=== PATIENT | male | born 1950 | race Caucasian/White ===

== ENCOUNTER 2018-03-23 20:20 | Emergency (ER) | payer OTHER, MEDICAID ==
[~2018-03-23] VITALS: Ht 182.9 cm; Wt 95.3 kg
[~2018-03-23 20:20] MED LIST: AML5T PO; ATOR10TA PO; CARB200T PO; CITA-30; DIVA500T4; DIVA500T53 PO; DONE10TA17; DOXE25CA2 PO; DRON400T PO; ERGO1CAP6 PO; FOLI1TAB51 PO; LACT10SO3 PO; MAGN400T21 PO; MEMA10TA PO; QUET200T30; RIV20T PO; ROPI1TAB PO; TAM04C PO; TOPI25TA32
[2018-03-23 21:35] VITALS: BP 144/87
[2018-03-23] MEDS ORDERED: MORPHINE SULF INJ 2 MG/ML SYRINGE 1ML IV ONE (21:45)
[2018-03-23] MEDS ORDERED: ASPirin-EC 325mg tab PO ONE (21:45)
[2018-03-23 21:49] LABS: Basophils # (auto) 0 uL; Eosinophils # (auto) 0 uL; Hemoglobin 14.3 g/dL (13.5-17.5); Lymphocytes # (auto) 0.7 uL; Lymphocytes % (auto) 27.8 % (10.0-50.0); Monocytes # (auto) 0.2 uL
[2018-03-23 21:50] LABS: Basophils % (auto) 0.3 % (0.0-2.0); Eosinophils % (auto) 0.7 % (0.0-7.0); Hematocrit 41.1 % (41.0-53.0); Mean Corpuscular Hemoglobin 35.3 pg (28.0-32.0); Mean Corpuscular Hgb Conc. 34.8 g/dL (32.0-36.0); Mean Corpuscular Volume 101.5 fL (80.0-100.0); Monocytes % (auto) 7.9 % (0.0-12.0); Neutrophils # (auto) 1.6 uL; Neutrophils % (auto) 63.3 % (37.0-80.0); Nucleated Red Blood Cells % 0.3 %; Red Blood Cells 4.05 10^6/uL (4.5-5.90); Red Cell Distribution Width 13.1 % (11.8-14.3); White Blood Cell 2.6 10^3/uL (4.4-10.8)
[2018-03-23 21:57] LABS: Platelet Count (auto) 95 10^3/uL (140-450)
[2018-03-23 22:03] LABS: INR 1.08 (0.9-1.15); Partial Thromboplastin Time 29.6 sec (23.78-33.04); Prothrombin Time 11.5 sec (9.27-12.13)
[2018-03-23] MEDS ORDERED: ONDANSETRON HCL 4 MG/2 ML VIAL IV ONE (22:15)
[2018-03-23 22:20] LABS: Alanine Aminotransferase 18 U/L (16-61); Albumin 3.5 g/dL (3.4-5.0); Anion Gap 9 (5-15); Aspartate Aminotransferase 14 U/L (15-37); BUN/Creatinine Ratio 22.4; Blood Urea Nitrogen 28 mg/dL (7-18); Calcium 7.9 mg/dL (8.5-10.1); Carbon Dioxide 20 mmol/L (21-32); Chloride 111 mmol/L (98-107); GFR African American 74 mL/min; GFR Non-African American 61 mL/min; Glucose 93 mg/dL (74-106); Magnesium 2.1 mg/dL (1.6-2.6); Potassium 4.2 mmol/L (3.5-5.1); Sodium 140 mmol/L (136-145)
[2018-03-23 22:26] LABS: Alkaline Phosphatase 90 U/L (45-117); Bilirubin, Total 0.3 mg/dL (0.2-1.0); Total Protein 6.7 g/dL (6.4-8.2)
[2018-03-23] MEDS ORDERED: IOHEXOL 350 MG/ML 100ML IJ ONE (22:33)
== END 2018-03-24 01:49 | disposition home or self-care (01) ==
LOC: EDBD 20:20 → ER 20:20
DX: R07.9 Chest pain, unspecified (principal); I50.9 Heart failure, unspecified; N18.9 Chronic kidney disease, unspecified; I25.10 Atherosclerotic heart disease of native coronary artery without angina pectoris; Z79.899 Other long term (current) drug therapy; Z90.49 Acquired absence of other specified parts of digestive tract; Z95.0 Presence of cardiac pacemaker
CPT/HCPCS: 36415; 71045; 71275; 80053; 83735; 83880; 84484; 85025; 85610; 85730; 93005; 96374; 96375; 99285; J2270; J2405; Q9967

== ENCOUNTER 2018-03-28 16:32 | Inpatient (IN) | payer OTHER, MEDICAID ==
[~2018-03-28] VITALS: Ht 185.4 cm; Wt 93.9 kg
[2018-03-28] MEDS ORDERED: SODIUM CHLORIDE 0.9% 1,000 ML IV ONE (18:11)
[2018-03-28 19:21] LABS: Mean Corpuscular Hemoglobin 34.7 pg (28.0-32.0)
[2018-03-28 19:23] LABS: Hematocrit 40.9 % (41.0-53.0); Hemoglobin 14.1 g/dL (13.5-17.5); Mean Corpuscular Hgb Conc. 34.4 g/dL (32.0-36.0); Platelet Count (auto) 92 10^3/uL (140-450); Red Blood Cells 4.05 10^6/uL (4.5-5.90)
[2018-03-28 19:34] LABS: Band Neutrophils % (manual) 0; Basophils % (manual) 0 (0.0-2.0); Blast Cells 0; Metamyelocytes % 0; Myelocytes % 0; Promyelocytes % 0; Reactive Lymphocytes 0
[2018-03-28 19:38] LABS: White Blood Cell 1.9 10^3/uL (4.4-10.8)
[2018-03-28 19:53] LABS: Sodium 142 mmol/L (136-145)
[2018-03-28 19:54] LABS: Alanine Aminotransferase 19 U/L (16-61); Alkaline Phosphatase 84 U/L (45-117); Anion Gap 8 (5-15); Aspartate Aminotransferase 10 U/L (15-37); BUN/Creatinine Ratio 20.4; Bilirubin, Total 0.4 mg/dL (0.2-1.0); Blood Urea Nitrogen 23 mg/dL (7-18); Calcium 8.1 mg/dL (8.5-10.1); Carbon Dioxide 24 mmol/L (21-32); Chloride 110 mmol/L (98-107); GFR African American 83 mL/min; GFR Non-African American 69 mL/min; Glucose 78 mg/dL (74-106); Total Protein 6.7 g/dL (6.4-8.2)
[2018-03-28 19:59] LABS: Albumin 3.5 g/dL (3.4-5.0)
[2018-03-28 20:05] LABS: Eosinophils % (manual) 2 (0-7); Lymphocytes % (manual) 55 (10.0-50.0); Monocytes % (manual) 5 (0-12)
[2018-03-28] MEDS ORDERED: fentaNYL CITRATE 100 MCG/2 ML VL IV ONE (22:00)
[2018-03-28] MEDS ORDERED: ACETAMINOPHEN 500 MG TAB PO PRN (23:00)
[2018-03-28] MEDS ORDERED: MORPHINE SULF INJ 2 MG/ML SYRINGE 1ML IV PRN (23:00)
[2018-03-28] MEDS ORDERED: ONDANSETRON HCL 4 MG/2 ML VIAL IV PRN (23:00)
[2018-03-28] MEDS ORDERED: QUEtiapine FUMARATE 100 MG TAB PO ONE (23:30)
[2018-03-29] MEDS ORDERED: NITROGLYCERIN 0.4 MG SL TAB SL PRN (01:00)
[2018-03-29] MEDS ORDERED: MORPHINE SULF INJ 2 MG/ML SYRINGE 1ML IV PRN (01:00)
[2018-03-29 01:30] VITALS: BP 143/88
[2018-03-29 01:31] LABS: Urine Amorphous Crystal MOD /hpf (None Seen); Urine Bacteria MANY /hpf (None Seen); Urine Blood Negative /uL (Negative); Urine Mucus FEW (None Seen); Urine Specific Gravity 1.023 (1.001-1.035); Urine WBC <1 /hpf (0 - 3)
[2018-03-29] MEDS: HYDROcodone-ACET 5/325MG TAB PO PRN ×3 (02:25→21:58)
[2018-03-29 05:00] VITALS: BP 117/74
[2018-03-29 05:43] LABS: Basophils # (auto) 0 uL; Eosinophils # (auto) 0.1 uL; Hemoglobin 12.8 g/dL (13.5-17.5); Lymphocytes # (auto) 0.9 uL; Monocytes # (auto) 0.1 uL
[2018-03-29 05:48] LABS: Basophils % (auto) 0.3 % (0.0-2.0); Eosinophils % (auto) 2.8 % (0.0-7.0); Hematocrit 37.5 % (41.0-53.0); Lymphocytes % (auto) 37.3 % (10.0-50.0); Mean Corpuscular Hemoglobin 34.6 pg (28.0-32.0); Mean Corpuscular Hgb Conc. 34.2 g/dL (32.0-36.0); Mean Corpuscular Volume 101.3 fL (80.0-100.0); Monocytes % (auto) 5.4 % (0.0-12.0); Neutrophils # (auto) 1.4 uL; Neutrophils % (auto) 54.2 % (37.0-80.0); Platelet Count (auto) 87 10^3/uL (140-450); Red Cell Distribution Width 12.7 % (11.8-14.3); White Blood Cell 2.5 10^3/uL (4.4-10.8)
[2018-03-29 05:59] LABS: BUN/Creatinine Ratio 20.7; Calcium 7.9 mg/dL (8.5-10.1); Potassium 3.7 mmol/L (3.5-5.1)
[2018-03-29] MEDS ORDERED: FINA5TAB4 PO (06:35)
[2018-03-29 09:00] VITALS: BP 128/84
[2018-03-29] MEDS: cefTRIAXone 1GM/10ml IVPUSH 10 ML IV SCH (10:31)
[2018-03-29] MEDS: TOPIRAMATE 25 MG TAB PO SCH ×2 (10:32→21:59)
[2018-03-29] MEDS: CITALOPRAM HYDROBR 20 MG TAB PO SCH (10:32)
[2018-03-29] MEDS: LACTULOSE 20Gm/30ML SOLN PO SCH (10:32)
[2018-03-29] MEDS: FOLIC ACID 1 MG TAB PO SCH (10:32)
[2018-03-29 13:00] VITALS: BP 123/74
[2018-03-29 17:01] VITALS: BP 129/81
[2018-03-29] MEDS ORDERED: RIVAROXABAN 20 MG TAB PO SCH (18:00)
[2018-03-29] MEDS: QUEtiapine FUMARATE 100 MG TAB PO SCH (21:56)
[2018-03-29] MEDS: DONEPEZIL HYDROCHLORIDE 5 MG TAB PO SCH (21:56)
[2018-03-29 22:00] VITALS: BP 143/86
[2018-03-29] MEDS ORDERED: ATORVASTATIN 20 MG TAB PO SCH (22:00)
[2018-03-30] MEDS: HYDROcodone-ACET 5/325MG TAB PO PRN ×2 (04:26→09:50)
[2018-03-30 05:00] VITALS: BP 123/79
[2018-03-30 09:00] VITALS: BP 153/94
[2018-03-30] MEDS: FOLIC ACID 1 MG TAB PO SCH (09:51)
[2018-03-30] MEDS: cefTRIAXone 1GM/10ml IVPUSH 10 ML IV SCH (09:51)
[2018-03-30] MEDS: LACTULOSE 20Gm/30ML SOLN PO SCH (09:51)
[2018-03-30] MEDS: TOPIRAMATE 25 MG TAB PO SCH ×2 (09:52→23:03)
[2018-03-30] MEDS: FINASTERIDE 5 MG TAB PO SCH (09:52)
[2018-03-30] MEDS: CITALOPRAM HYDROBR 20 MG TAB PO SCH (09:52)
[2018-03-30] MEDS ORDERED: LORazepam 2MG/ML-1ML VIAL IV PRN (12:00)
[2018-03-30 13:00] VITALS: BP 113/88
[2018-03-30] MEDS: carBAMazepine 200 MG TAB PO SCH ×2 (14:20→23:04)
[2018-03-30] MEDS: MEMANTINE HCL 5 MG TAB PO SCH ×2 (14:20→23:02)
[2018-03-30 15:52] LABS: Cholesterol 187 mg/dL (< 200); HDL Cholesterol 37 mg/dL (40-59); LDL Cholesterol 116 mg/dL (< 100); Triglycerides 230 mg/dL (< 150)
[2018-03-30 17:10] VITALS: BP 117/74
[2018-03-30] MEDS: RIVAROXABAN 15 MG TAB PO SCH (18:00)
[2018-03-30] MEDS: ROPINIROLE 1 MG PO SCH (22:00)
[2018-03-30 22:19] VITALS: BP 147/80
[2018-03-30] MEDS: ATORVASTATIN 20 MG TAB PO SCH (23:03)
[2018-03-30] MEDS: DONEPEZIL HYDROCHLORIDE 5 MG TAB PO SCH (23:05)
[2018-03-30] MEDS: QUEtiapine FUMARATE 100 MG TAB PO SCH (23:05)
[2018-03-31 04:48] VITALS: BP 140/88
[2018-03-31] MEDS: HYDROcodone-ACET 5/325MG TAB PO PRN ×2 (06:13→23:22)
[2018-03-31 08:58] VITALS: BP 128/78
[2018-03-31] MEDS: cefTRIAXone 1GM/10ml IVPUSH 10 ML IV SCH (09:36)
[2018-03-31] MEDS: FINASTERIDE 5 MG TAB PO SCH (09:36)
[2018-03-31] MEDS: FOLIC ACID 1 MG TAB PO SCH (09:37)
[2018-03-31] MEDS: MEMANTINE HCL 5 MG TAB PO SCH ×2 (09:37→22:15)
[2018-03-31] MEDS: TOPIRAMATE 25 MG TAB PO SCH ×2 (09:37→22:15)
[2018-03-31] MEDS: carBAMazepine 200 MG TAB PO SCH ×2 (09:37→22:14)
[2018-03-31] MEDS: LACTULOSE 20Gm/30ML SOLN PO SCH (09:37)
[2018-03-31] MEDS: CITALOPRAM HYDROBR 20 MG TAB PO SCH (09:37)
[2018-03-31] MEDS: ROPINIROLE 1 MG PO SCH ×3 (09:38→22:00)
[2018-03-31 11:29] LABS: Folate (Folic Acid) > 24.00 ng/mL (5.38-24)
[2018-03-31 13:00] VITALS: BP 133/81
[2018-03-31 16:57] VITALS: BP 123/84
[2018-03-31] MEDS: RIVAROXABAN 15 MG TAB PO SCH (18:23)
[2018-03-31 20:10] VITALS: BP 133/74
[2018-03-31 22:00] VITALS: BP 133/74
[2018-03-31] MEDS: ATORVASTATIN 20 MG TAB PO SCH (22:12)
[2018-03-31] MEDS: DONEPEZIL HYDROCHLORIDE 5 MG TAB PO SCH (22:17)
[2018-03-31] MEDS: QUEtiapine FUMARATE 100 MG TAB PO SCH (22:17)
[2018-04-01 05:00] VITALS: BP 117/93
[2018-04-01 08:18] VITALS: BP 132/92
[2018-04-01] MEDS: cefTRIAXone 1GM/10ml IVPUSH 10 ML IV SCH (08:32)
[2018-04-01] MEDS: LACTULOSE 20Gm/30ML SOLN PO SCH (08:33)
[2018-04-01] MEDS: FINASTERIDE 5 MG TAB PO SCH (08:33)
[2018-04-01] MEDS: FOLIC ACID 1 MG TAB PO SCH (08:33)
[2018-04-01] MEDS: carBAMazepine 200 MG TAB PO SCH ×2 (08:33→21:36)
[2018-04-01] MEDS: MEMANTINE HCL 5 MG TAB PO SCH ×2 (08:33→21:36)
[2018-04-01] MEDS: CITALOPRAM HYDROBR 20 MG TAB PO SCH (08:33)
[2018-04-01] MEDS: TOPIRAMATE 25 MG TAB PO SCH ×2 (08:34→21:40)
[2018-04-01] MEDS: ROPINIROLE 1 MG PO SCH (10:00)
[2018-04-01 12:23] VITALS: BP 142/86
[2018-04-01 16:54] VITALS: BP 136/84
[2018-04-01] MEDS: RIVAROXABAN 15 MG TAB PO SCH (18:07)
[2018-04-01] MEDS: QUEtiapine FUMARATE 100 MG TAB PO SCH (21:36)
[2018-04-01] MEDS: DONEPEZIL HYDROCHLORIDE 5 MG TAB PO SCH (21:36)
[2018-04-01] MEDS: ATORVASTATIN 20 MG TAB PO SCH (21:36)
[2018-04-01 22:00] VITALS: BP 120/79
[2018-04-02 05:00] VITALS: BP 129/87
[2018-04-02 08:00] VITALS: BP 156/97
[2018-04-02 08:24] VITALS: BP 156/97
[2018-04-02] MEDS: cefTRIAXone 1GM/10ml IVPUSH 10 ML IV SCH (09:31)
[2018-04-02] MEDS: LACTULOSE 20Gm/30ML SOLN PO SCH (09:31)
[2018-04-02] MEDS: FOLIC ACID 1 MG TAB PO SCH (09:31)
[2018-04-02] MEDS: FINASTERIDE 5 MG TAB PO SCH (09:32)
[2018-04-02] MEDS: CITALOPRAM HYDROBR 20 MG TAB PO SCH (09:32)
[2018-04-02] MEDS: MEMANTINE HCL 5 MG TAB PO SCH (09:32)
[2018-04-02] MEDS: carBAMazepine 200 MG TAB PO SCH (09:33)
[2018-04-02 14:01] VITALS: BP 156/97
[2018-04-02 16:00] VITALS: BP 119/77
== END 2018-04-02 16:30 | DRG 552 ==
LOC: EDBD 16:32 → ER 16:35 → OVERFLOW 16:36 → CENTRAL 03-29 01:30
PROVIDERS: ADMIT Nurse Practitioner Family; ATTEND Family Medicine
DX: M48.061 Spinal stenosis, lumbar region without neurogenic claudication (principal); N39.0 Urinary tract infection, site not specified; G40.209 Localization-related (focal) (partial) symptomatic epilepsy and epileptic syndromes with complex partial seizures, not intractable, without status epilepticus; D50.9 Iron deficiency anemia, unspecified; D69.6 Thrombocytopenia, unspecified; D70.9 Neutropenia, unspecified; E78.00 Pure hypercholesterolemia, unspecified; E78.5 Hyperlipidemia, unspecified; F03.90 Unspecified dementia, unspecified severity, without behavioral disturbance, psychotic disturbance, mood disturbance, and anxiety; F20.9 Schizophrenia, unspecified; G20 Parkinson's disease; H91.90 Unspecified hearing loss, unspecified ear; I11.0 Hypertensive heart disease with heart failure; I50.9 Heart failure, unspecified; K74.60 Unspecified cirrhosis of liver; K80.20 Calculus of gallbladder without cholecystitis without obstruction; M47.896 Other spondylosis, lumbar region; M77.9 Enthesopathy, unspecified; N20.0 Calculus of kidney; N40.0 Benign prostatic hyperplasia without lower urinary tract symptoms; I49.5 Sick sinus syndrome; Z98.1 Arthrodesis status; Z95.0 Presence of cardiac pacemaker; I25.2 Old myocardial infarction; Z79.01 Long term (current) use of anticoagulants; Z79.899 Other long term (current) drug therapy; Z86.711 Personal history of pulmonary embolism; Z86.718 Personal history of other venous thrombosis and embolism; Z86.73 Personal history of transient ischemic attack (TIA), and cerebral infarction without residual deficits; Z80.42 Family history of malignant neoplasm of prostate
CPT/HCPCS: 36415; 70450; 72131; 74176; 76700; 80048; 80053; 80061; 81001; 82607; 82746; 83880; 84443; 84484; 85007; 85025; 85027; 87081; 87086; 93005; 93306; 93886; 93926; 93971; 95819; 96361; 96374; 97110; 97116; 97163; J0696

== ENCOUNTER 2018-06-16 09:15 | Emergency (ER) | payer OTHER, MEDICAID ==
[~2018-06-16] VITALS: Ht 195.6 cm; Wt 95.3 kg
[~2018-06-16 09:15] MED LIST changes: -AML5T PO; -DIVA500T53 PO; -DOXE25CA2 PO; -DRON400T PO; +FINA5TAB4 PO; -FOLI1TAB51 PO; -LACT10SO3 PO; -TAM04C PO
[2018-06-16] MEDS ORDERED: SODIUM CHLORIDE 0.9% 1,000 ML IV ONE (10:05)
[2018-06-16 10:12] LABS: Basophils # (auto) 0 uL; Basophils % (auto) 0.3 % (0.0-2.0); Eosinophils # (auto) 0 uL; Eosinophils % (auto) 0.5 % (0.0-7.0); Hematocrit 42.5 % (41.0-53.0); Hemoglobin 14.5 g/dL (13.5-17.5); Lymphocytes # (auto) 1.1 uL; Lymphocytes % (auto) 38.6 % (10.0-50.0); Mean Corpuscular Hemoglobin 35.4 pg (28.0-32.0); Mean Corpuscular Hgb Conc. 34.1 g/dL (32.0-36.0); Mean Corpuscular Volume 103.7 fL (80.0-100.0); Monocytes # (auto) 0.3 uL; Monocytes % (auto) 9.4 % (0.0-12.0); Neutrophils # (auto) 1.4 uL; Neutrophils % (auto) 51.2 % (37.0-80.0); Nucleated Red Blood Cells % 0.1 %; Platelet Count (auto) 75 10^3/uL (140-450); Red Blood Cells 4.09 10^6/uL (4.5-5.90); White Blood Cell 2.8 10^3/uL (4.4-10.8)
[2018-06-16] MEDS ORDERED: QUEtiapine FUMARATE 25 MG TAB PO ONE (10:15)
[2018-06-16 10:22] LABS: Albumin 3.6 g/dL (3.4-5.0); Anion Gap 7 (5-15); Blood Urea Nitrogen 30 mg/dL (7-18); Calcium 8.6 mg/dL (8.5-10.1); Carbon Dioxide 24 mmol/L (21-32); Chloride 110 mmol/L (98-107); Glucose 80 mg/dL (74-106); Magnesium 2.2 mg/dL (1.6-2.6); Potassium 3.9 mmol/L (3.5-5.1); Sodium 141 mmol/L (136-145)
[2018-06-16 10:28] LABS: Alanine Aminotransferase 28 U/L (16-61); Alkaline Phosphatase 78 U/L (45-117); Aspartate Aminotransferase 20 U/L (15-37); BUN/Creatinine Ratio 24.6; Bilirubin, Total 0.5 mg/dL (0.2-1.0); GFR African American 76 mL/min; GFR Non-African American 63 mL/min; Total Protein 6.8 g/dL (6.4-8.2)
[2018-06-16 11:18] VITALS: BP 127/76
[2018-06-16 11:56] LABS: Urine Bacteria NONE SEEN /hpf (None Seen); Urine Blood Negative /uL (Negative); Urine Specific Gravity 1.021 (1.001-1.035); Urine WBC 1 /hpf (0 - 3)
== END 2018-06-16 13:19 | disposition home or self-care (01) ==
LOC: ER 09:15 → EDBD 09:15 → ER 13:19
DX: F41.9 Anxiety disorder, unspecified (principal); Z90.89 Acquired absence of other organs; Z95.0 Presence of cardiac pacemaker; Z79.899 Other long term (current) drug therapy
CPT/HCPCS: 36415; 71046; 80053; 81001; 83735; 83880; 84484; 85025; 93005; 93970; 94761; 99285; J7030; 96360

== ENCOUNTER 2019-03-20 09:45 | Emergency (ER) | payer MEDICARE, MEDICAID ==
[~2019-03-20] VITALS: Ht 195.6 cm; Wt 95.3 kg
[~2019-03-20 09:45] MED LIST changes: +ACET325T82 PO; -ATOR10TA PO; +ATOR10TA52 PO; +BACL20TA PO; -CARB200T PO; +CARB200T4 PO; +CHOL20007 PO; -CITA-30; +CITA10TA59 PO; +DICL1GEL26 TOP; -DIVA500T4; +DIVA500T53 PO; -DONE10TA17; +DONE10TA40 PO; -ERGO1CAP6 PO; +GABA300C10 PO; +HYDR-4833 PO; +IBUP800T24 PO; +LORA0.5T12 PO; +LORA1TAB12 PO; -MAGN400T21 PO; +MELO1TAB73 PO; +MEM5T PO; -MEMA10TA PO; +MORP-109 PO; -QUET200T30; -RIV20T PO; +RIVA20TA PO; -TOPI25TA32; +TOPI50TA32 PO
[2019-03-20 10:00] VITALS: BP 158/78
[2019-03-20 10:29] LABS: Alcohol, Urine < 3.0 mg/dL (0-5); Amphetamine Screen, Urine NEGATIVE (NEGATIVE); Barbiturate Scree,Urine NEGATIVE (NEGATIVE); Benzodiazephine Screen, Urine NEGATIVE (NEGATIVE); Cannabinoid Screen, Urine NEGATIVE (NEGATIVE); Cocaine Screen, Urine NEGATIVE (NEGATIVE); Opiate Scree,Urine NEGATIVE (NEGATIVE); Phencyclidine Screen, Urine NEGATIVE (NEGATIVE)
[2019-03-20 10:39] LABS: Basophils # (auto) 0 uL; Basophils % (auto) 0.8 % (0.0-2.0); Eosinophils # (auto) 0.2 uL; Eosinophils % (auto) 4.3 % (0.0-7.0); Hematocrit 39.5 % (41.0-53.0); Hemoglobin 13.1 g/dL (13.5-17.5); Lymphocytes # (auto) 1.7 uL; Lymphocytes % (auto) 35.5 % (10.0-50.0); Mean Corpuscular Hemoglobin 31.6 pg (28.0-32.0); Mean Corpuscular Hgb Conc. 33.2 g/dL (32.0-36.0); Mean Corpuscular Volume 95.3 fL (80.0-100.0); Monocytes # (auto) 0.5 uL; Monocytes % (auto) 11.3 % (0.0-12.0); Neutrophils # (auto) 2.3 uL; Neutrophils % (auto) 48.1 % (37.0-80.0); Nucleated Red Blood Cells % 0.2 %; Platelet Count (auto) 77 10^3/uL (140-450); Red Blood Cells 4.15 10^6/uL (4.5-5.90); Red Cell Distribution Width 14.3 % (11.8-14.3); White Blood Cell 4.7 10^3/uL (4.4-10.8)
[2019-03-20 10:51] LABS: Albumin 3.6 g/dL (3.4-5.0); BUN/Creatinine Ratio 13.9; Calcium 8.7 mg/dL (8.5-10.1); Potassium 4.6 mmol/L (3.5-5.1)
[2019-03-20 10:53] LABS: Bilirubin, Total 0.2 mg/dL (0.2-1.0); Total Protein 6.6 g/dL (6.4-8.2)
[2019-03-20 11:02] LABS: Carbamazepine (Tegretol) 7.8 ug/mL (4-12)
== END 2019-03-20 13:31 | disposition home or self-care (01) ==
LOC: EDBD 09:45 → ER 09:49
DX: R56.9 Unspecified convulsions (principal); N18.3 Chronic kidney disease, stage 3 (moderate); I13.0 Hypertensive heart and chronic kidney disease with heart failure and stage 1 through stage 4 chronic kidney disease, or unspecified chronic kidney disease; I50.9 Heart failure, unspecified; I48.91 Unspecified atrial fibrillation; Z95.0 Presence of cardiac pacemaker; Z90.49 Acquired absence of other specified parts of digestive tract; Z79.1 Long term (current) use of non-steroidal anti-inflammatories (NSAID); Z79.899 Other long term (current) drug therapy
CPT/HCPCS: 36415; 80053; 80156; 80164; 80307; 85025; 93005; 94761

== ENCOUNTER 2024-10-10 10:29 | Inpatient (IN) | payer MEDICARE, MEDICAID ==
[~2024-10-10] VITALS: Ht 182.9 cm; Wt 121.3 kg
[~2024-10-10 10:29] MED LIST changes: -ACET325T82 PO; -BACL20TA PO; -CARB200T4 PO; -CHOL20007 PO; -CITA10TA59 PO; +CITA10TA8 PO; -DICL1GEL26 TOP; +DIVA-91 PO; -DIVA500T53 PO; -DONE10TA40 PO; +DONE10TA9 PO; +FURO40TA4 PO; -GABA300C10 PO; -HYDR-4833 PO; -IBUP800T24 PO; -LORA0.5T12 PO; -LORA1TAB12 PO; -MELO1TAB73 PO; -MORP-109 PO; +POTA-36 PO; +QUET200T4 PO
--- NOTE | 2024-10-10 10:56 | ED.PDOC ---
HPI Comments HPI: 74-year-old male brought in by EMS presents with a chief complaint of chest pain x onset 30 minutes ago. Patient is baseline A&Ox2 and is poor historian. Patient is coming from a board & care facility and is bed-bound. Patient points to his left chest under his breast when asked where is the pain. Patient endorsed to EMS that his pain was a 9/10 and is tender to palpation. Patients history and medication list was obtained from prior [facility] medical records. Past Medical History: CHF, COPD, A-FIB, ARTHRITIS, DEMENTIA, DEPRESSION, HLD, HTN, [place], SEIZURES Past Surgical History: PACEMAKER, APPENDECTOMY Social History: OCCASIONAL ALCOHOL USE Medications: LASIX, PLAVIX, ELIQUIS, SYMBICORT, GABAPENTIN, CITALOPRAM, TRAMADOL, TEMAZEPAM Allergies: NKDA HPI: Poor Historian. REVIEW OF SYSTEMS: CONSTITUTIONAL: Denies acute: fever, diaphoresis, chills, generalized weakness. HEAD: Denies acute: headache, photophobia Eyes: Denies acute: Double vision, vision loss, eye pain, eye discharge. EARS: Denies acute: tinnitus, hearing loss, ear discharge, ear pain, THROAT: Denies acute: sore throat, swelling, difficulty swallowing , pain with swallowing, change in voice. NECK: Denies acute: neck pain, neck swelling, stiff neck. HEART: Denies acute : palpitations, LUNGS: Denies acute: SOB, wheezing, cough, hemoptysis ABDOMEN: Denies acute: abdominal pain, Nausea, Vomiting, diarrhea, melena , hematemesis, hematochezia SKIN: Denies acute: rash, redness, lesions, itchiness. EXTREMITIES: Denies acute: calf pain, numbness, tingling, weakness, denies pain in extremity. Denies acute: Low back pain. Neuro: Denies acute: focal neurological deficit, motor or sensory focal neurological deficit, tremors, seizure like activity, confusion, dizziness, change in mental status, loss of bowel or bladder function, cauda equina like symptoms. : Denies acute: dysuria, hematuria, flank pain, increase in urinary frequency. PSYCH: Denies acute: hallucination, suicidal ideation, homicidal ideation. PHYSICAL EXAM: General: no acute distress, awake and alert. Head: normocephalic, atraumatic. Neck: supple, trachea is midline, no swelling. Throat: Normal phonation. Eyes:, no erythema, no purulent discharge, no proptosis, no icterus. Heart: regular rate, regular rhythm, no significant murmur appreciated. Lungs: no apparent respiratory distress, Able to speak in full sentences. No wheezing, no rhonchi, no crackles. No stridors Clear to auscultation bilaterally. Abdomen: Left upper quadrant tender to palpation, non distended, soft, no guarding, no rebound, + bowel sounds. Neuro: Awake, Alert, oriented to name, self, situation, follows commands, at baseline dementia. GCS=15. Speech is normal. Skin: no petechia, no purpura, no cyanosis, non-pale, not jaundice. Lower extremities: --1/4 bilateral - Pitting edema no deformity, no focal swelling, no calf TTP. Makes eye contact. moves all four extremities. Face: no apparent facial droop. ED COURSE: Chief Complaint: Chest Pain Time Seen by MD: 10:36 Primary Care Provider: CHER Reviewed Notes: Nurses Notes, Medications, Allergies Allergies: Coded Allergies: NO KNOWN ALLERGIES (Unverified , 03/07/11) Home Meds Reported Medications Donepezil Hydrochloride (Aricept) 10 Mg Tab, 10 MG PO QHSP, TAB 04/26/19 Quetiapine Fumerate (Seroquel Xr) 200 Mg Tab, 200 MG PO QHSP for 30 Days, MG 04/26/19 Citalopram Hydrobromide (Celexa) 10 Mg Tab, 40 MG PO DAILY, TAB 04/26/19 Furosemide (Furosemide) 40 Mg Tab, 40 MG PO DAILY for 30 Days 04/26/19 Potassium Chloride (POTASSIUM CHLORIDE CR) 10 Meq Tb, 20 MEQ PO DAILY, TAB 04/26/19 Rivaroxaban (XARELTO) 20 Mg Tab, 1 TAB PO QPM, #30 TAB 5 Refills 01/26/19 Topiramate (Topamax) 50 Mg Tab, 50 MG PO DAILY, TAB 01/26/19 Memantine Hcl (NAMENDA TABLET) 5 Mg Tb, 10 MG PO HS 6/24/19 Ropinirole Hydrochloride (Requip) 1 Mg Tab, 1 MG PO TID, TAB 01/26/19 Atorvastatin Calcium (ATORVASTATIN CALCIUM) 10 Mg Tab, 10 MG PO HS, TAB 01/26/19 Finasteride (Finasteride) 5 Mg Tab, 1 TAB PO DAILY, #90 TAB 3 Refills 01/26/19 Divalproex Sodium (Depakote) 500 Mg Tab, 1500 MG PO HS, TAB 01/26/19 Information Source: Patient, Emergency Med Personnel Mode of Arrival: EMS Severity: Moderate Past Medical History PAST MEDICAL HISTORY: AFIB, Arthritis, CHF, COPD, Dementia, Depression, High Lipids, HTN, [place], Seizures Surgical History: Appendectomy, Pacemaker Family History Family History: No family hx of Cancer Social History Smoker: Non-Smoker Alcohol: Occasionally Drugs: Denies Drug Use Lives In: Assisted Care Was a procedure done? Was a procedure done?: No CP Differential Dx Differential Diagnosis: N/A Differential Diagnosis: Other (Ddx include but not limitied to gastritis, musculoskeletal pain, radiculopathy, atypical chest pain, dissection, aneurysm, ACS, unstable angina, hiatal hernia, GERD, anxiety, costochondritis, PE, pneumothroax, neoplasm, cardiac ischemia, drug abuse, anemia.) X-Ray, Labs, Meds, VS Vital Signs Date Time Temp Pulse Resp B/P (MAP) Pulse Ox O2 Delivery O2 Flow Rate FiO2 10/10/24 16:00 60 10/10/24 14:00 60 17 96 Room Air* 0 21 10/10/24 14:00 60 17 131/84 (100) 96 10/10/24 13:00 60 18 124/81 (95) 96 10/10/24 12:10 60 10/10/24 11:55 60 18 128/72 (90) 94 10/10/24 11:29 60 10/10/24 11:06 97.9 70 18 137/101 (113) 94 10/10/24 10:34 60 Lab Test 10/10/24 14:39 10/10/24 11:38 10/10/24 10:46 Range/Units Troponin I High Sensitivity 15 15 15 </=54 ng/L Lactic Acid Level 1.2 0.4-2.0 mmol/L White Blood Count 4.4 4.4-10.8 10^3/uL Red Blood Count 4.26 L 4.5-5.90 10^6/uL Hemoglobin 14.6 13.5-17.5 g/dL Hematocrit 42.5 41.0-53.0 % Mean Corpuscular Volume 99.8 80.0-100.0 fL Mean Corpuscular Hemoglobin 34.4 H 28.0-32.0 pg Mean Corpuscular Hemoglobin Concent 34.4 32.0-36.0 g/dL Red Cell Distribution Width 13.1 11.8-14.3 % Platelet Count 94 L 140-450 10^3/uL Mean Platelet Volume 7.4 6.9-10.8 fL Neutrophils (%) (Auto) 55.2 37.0-80.0 % Lymphocytes (%) (Auto) 33.7 10.0-50.0 % Monocytes (%) (Auto) 8.4 0.0-12.0 % Eosinophils (%) (Auto) 2.3 0.0-7.0 % Basophils (%) (Auto) 0.4 0.0-2.0 % Neutrophils # (Auto) 2.4 1.6-8.6 10 ^3/uL Lymphocytes # (Auto) 1.5 0.4-5.4 10 ^3/uL Monocytes # (Auto) 0.4 0-1.3 10 ^3/uL Eosinophils # (Auto) 0.1 0-0.8 10 ^3/uL Basophils # (Auto) 0 0-0.2 10 ^3/uL Nucleated Red Blood Cells 0.2 % Sodium Level 140 136-145 mmol/L Potassium Level 3.7 3.5-5.1 mmol/L Chloride Level 105 98-107 mmol/L Carbon Dioxide Level 28 20-31 mmol/L Anion Gap 7 5-15 Blood Urea Nitrogen 34 H 9-23 mg/dL Creatinine 1.82 H 0.700-1.30 mg/dL Glomerular Filtration Rate Calc 39 >90 mL/min BUN/Creatinine Ratio 18.7 10.0-20.0 Serum Glucose 89 74-106 mg/dL Calcium Level 9.5 8.7-10.4 mg/dL Total Bilirubin 0.5 0.2-1.0 mg/dL Aspartate Amino Transferase (AST) 33 13-40 U/L Alanine Aminotransferase (ALT) 11 7-40 U/L Alkaline Phosphatase 74 46-116 U/L B-Type Natriuretic Peptide 16.38 0-100 pg/mL Total Protein 6.8 5.7-8.2 g/dL Albumin 4.2 3.2-4.8 g/dL Lipase 33 12-53 U/L Current Medications Medications (Trade) Dose Ordered Sig/Yvonne Route Start Time Stop Time Status Last Admin Ceftriaxone Sodium 50 ml @ 100 mls/hr ONCE ONCE IV 10/10/24 12:00 10/10/24 12:29 DC 10/10/24 12:40 Time of 1ST Reevaluation: 11:06 Reevaluation 1ST: Unchanged Patient Education/Counseling: Diagnosis, Treatment Family Education/Counseling: Diagnosis, Treatment Comments Patient presented with the above HPI.--cardiac---workup was initiated. patient was found with the above mentioned diagnosis. the following medications were ordered: please refer to order lists of meds and tests obtained by myself Dr. Raman. Patient ED course and VS have been stabilized. Patient has been reassessed in the ED and remained in a stable condition. Pertinent incidental findings were discussed with the patient and/or family. Patient/family voices understanding and is agreeable with plan. Patient has been observed in the ED adequate length of time to insure improvement/stability. Escalation of care considered: Consideration of escalation to observation or admission Patient was ADMITTED to the medicine team for further evaluation and treatment of their presentation. CT scan of the abdomen and pelvis was obtained because patient was tender to palpation on the left upper quadrant. All the reports of any imaging studies that were ordered by myself were reviewed by myself. Departure 1 Departure Time of Disposition: 11:53 Impression: Primary Impression: Chest pain Additional Impressions: Pneumonia Constipation Abnormal EKG T wave inversion in EKG Disposition: ADMITTED INPATIENT Admit to: Tele Condition: Guarded Discharged With: Self Critical Care Note Critical Care Time?: Yes (35 min-critical care time only) Heart Score Heart Score: Heart Score Response (Comments) Value History Moderate Suspicious [address]-Deviation 2 Age >65 2 Risk Factors >3 or Hx ASHD 2 Troponin Normal limit 0 Total 7 I personally scribed for VA RAMAN DO ([email or web address]) on 10/10/24 at 10:56. Electronically submitted by Krzysztof Estrella ([email or web address]). I personally scribed for VA RAMAN DO ([email or web address]) on 10/10/24 at 12:09. Electronically submitted by Krzysztof Estrella ([email or web address]). VA RAMAN DO Oct 10, 2024 10:56
[2024-10-10 11:02] LABS: Basophils # (auto) 0 10 ^3/uL (0-0.2); Eosinophils # (auto) 0.1 10 ^3/uL (0-0.8); Lymphocytes # (auto) 1.5 10 ^3/uL (0.4-5.4); Monocytes # (auto) 0.4 10 ^3/uL (0-1.3); Platelet Count (auto) 94 10^3/uL (140-450)
[2024-10-10 11:05] LABS: Basophils % (auto) 0.4 % (0.0-2.0); Eosinophils % (auto) 2.3 % (0.0-7.0); Hematocrit 42.5 % (41.0-53.0); Hemoglobin 14.6 g/dL (13.5-17.5); Lymphocytes % (auto) 33.7 % (10.0-50.0); Mean Corpuscular Hemoglobin 34.4 pg (28.0-32.0); Mean Corpuscular Hgb Conc. 34.4 g/dL (32.0-36.0); Mean Corpuscular Volume 99.8 fL (80.0-100.0); Monocytes % (auto) 8.4 % (0.0-12.0); Neutrophils # (auto) 2.4 10 ^3/uL (1.6-8.6); Neutrophils % (auto) 55.2 % (37.0-80.0); Nucleated Red Blood Cells % 0.2 %; Red Blood Cells 4.26 10^6/uL (4.5-5.90); Red Cell Distribution Width 13.1 % (11.8-14.3); White Blood Cell 4.4 10^3/uL (4.4-10.8)
[2024-10-10 11:24] LABS: Alanine Aminotransferase 11 U/L (7-40); Albumin 4.2 g/dL (3.2-4.8); Alkaline Phosphatase 74 U/L (46-116); Aspartate Aminotransferase 33 U/L (13-40); BUN/Creatinine Ratio 18.7 (10.0-20.0); Calcium 9.5 mg/dL (8.7-10.4); Carbon Dioxide 28 mmol/L (20-31); Glucose 89 mg/dL (74-106); Lipase 33 U/L (12-53); Total Protein 6.8 g/dL (5.7-8.2)
[2024-10-10 11:25] LABS: Bilirubin, Total 0.5 mg/dL (0.2-1.0)
[2024-10-10 11:30] LABS: Blood Urea Nitrogen 34 mg/dL (9-23)
--- NOTE | 2024-10-10 11:34 | DVH ---
EXAM: XR Chest, 1 View CLINICAL INDICATION: cp TECHNIQUE: Frontal view of the chest. COMPARISON: None FINDINGS: LUNGS AND PLEURAL SPACES: Mild congestive heart failure. No consolidation. No pneumothorax. HEART: Unremarkable. No cardiomegaly. MEDIASTINUM: Unremarkable. Normal mediastinal contour. BONES/JOINTS: Unremarkable. No acute fracture. TUBES, LINES AND DEVICES: Right-sided cardiac pacemaker. OTHER FINDINGS: . IMPRESSION: Mild congestive heart failure.
--- NOTE | 2024-10-10 11:36 | DVH ---
EXAM: CT Abdomen and Pelvis Without Intravenous Contrast CLINICAL INDICATION: cp, LUQ pain TECHNIQUE: Axial computed tomography images of the abdomen and pelvis without intravenous contrast. This CT exam was performed using one or more of the following dose reduction techniques: automated exposure control, adjustment of the mA and/or kV according to patient size, and/or use of iterative r econstruction technique. CONTRAST: RADIATION DOSE: CTDIvol = 16.91 mGy, DLP = 983.34 mGy-cm COMPARISON: None FINDINGS: ARTIFACTS: Motion artifact. LUNG BASES: Bibasilar atelectasis or pneumonia. HEART: Mild cardiomegaly. ABDOMEN: LIVER: Fatty infiltration of the liver. GALLBLADDER AND BILE DUCTS: Cholelithiasis. No ductal dilation. PANCREAS: Unremarkable. No ductal dilation. SPLEEN: Unremarkable. No splenomegaly. ADRENALS: Unremarkable. No mass. KIDNEYS AND URETERS: Punctate left nephrolithiasis without hydronephrosis. Left renal cyst. STOMACH AND BOWEL: Fecal retention in the colon consistent with constipation. Air-fluid level in t he: Could relate to recent diarrhea. Clinical correlation is recommended. No obstruction. No mucosa l thickening. PELVIS: APPENDIX: No findings to suggest acute appendicitis. BLADDER: Distended urinary bladder. No stones. REPRODUCTIVE: Unremarkable as visualized. ABDOMEN and PELVIS: INTRAPERITONEAL SPACE: Unremarkable. No free air. No significant fluid collection. BONES/JOINTS: Multilevel degenerative change and disc disease of the lumbar spine. No acute fractu re. No dislocation. SOFT TISSUES: Unremarkable. VASCULATURE: Indwelling IVC filter. No abdominal aortic aneurysm. LYMPH NODES: Unremarkable. No enlarged lymph nodes. OTHER FINDINGS: . IMPRESSION: 1. Bibasilar atelectasis or pneumonia. 2. Cholelithiasis. 3. Fecal retention in the colon consistent with constipation. 4. Punctate left nephrolithiasis without hydronephrosis. 5. Air-fluid level in the: Could relate to recent diarrhea. Clinical correlation is recommended.
[2024-10-10 11:44] LABS: Anion Gap 7 (5-15); Chloride 105 mmol/L (98-107); Potassium 3.7 mmol/L (3.5-5.1); Sodium 140 mmol/L (136-145)
[2024-10-10] MEDS: cefTRIAXone 1GM/50ML D5W 50 ML IV ONE (12:40)
[2024-10-10 14:00] VITALS: PULSE 60; RESP 17; O2SAT 96
--- NOTE | 2024-10-10 18:23 | ECG ---
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
--- NOTE | 2024-10-10 18:24 | ECG ---
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
[2024-10-10 19:30] VITALS: PULSE 70; RESP 16; O2SAT 96
[2024-10-10] MEDS ORDERED: ACETAMINOPHEN 325 MG TAB PO PRN (20:30)
[2024-10-10] MEDS ORDERED: ONDANSETRON HCL 4 MG/2 ML VIAL IV PRN (20:30)
[2024-10-10] MEDS ORDERED: HYDROcodone-ACET 5/325MG TAB PO PRN (20:30)
[2024-10-10] MEDS ORDERED: DOCUSATE SOD 100 MG CAP PO PRN (20:30)
[2024-10-10] MEDS ORDERED: hydrALAZINE HCL 20 MG/ML VL IV PRN (20:45)
[2024-10-10] MEDS: ATORVASTATIN 20 MG TAB PO SCH (21:24)
[2024-10-10] MEDS: QUEtiapine FUMARATE 100 MG TAB PO SCH (21:24)
[2024-10-10] MEDS: DONEPEZIL HYDROCHLORIDE 5 MG TAB PO SCH (21:24)
--- NOTE | 2024-10-10 21:38 | DVHHP2 ---
History of Present Illness Reason for Visit: Chest pain History of Present Illness The patient is a 74-year-old male bed-bound with multiple past medical history including AFib, CHF, COPD, arthritis, dementia, and NH who presented to [facility] ED with complaint of chest pain. Patient has been experiencing confusion state, generalized weakness, getting worse that prompted this visit. Patient points to his left chest under his breast when asked where is the pain. Patient endorsed to EMS that his pain was 9/10 and is tender to palpation. Patient was seen and evaluated in the ED, laboratory data shows WBC 4.4, platelets 45564, sodium 140, potassium 3.7, BUN 34, creatinine 1.82, GFR 39, glucose 89, troponin 15, BNP 16.38. Chest x-ray revealing mild congestive heart failure. Abdomen/pelvis CT revealing bibasilar atelectasis or pneumonia, cholelithiasis, fecal retention in the colon consistent with constipation, punctuate left nephrolithiasis without hydronephrosis. Patient was started on IV antibiotic regimen azithromycin, please see medication orders section in the computer. On my assessment, patient denied chest pain, no headache, no dizziness, currently on oxygen, no nausea, no vomiting, no fever, no chills. Patient was admitted for further evaluation and medical management. Past Medical History AFIB, Arthritis, CHF, COPD, Dementia, Depression, High Lipids, HTN, NH, Seizures Past Surgical History Appendectomy, Pacemaker Family History Reviewed, noncontributory to the management of this case. Past Social History The patient lives at home, denies smoking, alcohol or illicit drugs abuse. Review of Systems Constitutional: Yes: Weakness; No: Fever, Chills, Sweats, Malaise, Other Eyes: No: Pain, Vision change, Conjunctivae inflammation, Eyelid inflammation, Other, Redness ENT: No: Ear pain, Ear discharge, Nose pain, Nose discharge, Nose congestion, Mouth pain, Mouth swelling, Throat pain, Throat swelling, Other Respiratory: Shortness of breath; No: Cough, Dry, SOB with excertion, Wheezing, Hemoptysis, Pleuritic Pain, Sputum, Wheezing, Other Cardiovascular: Chest Pain Gastrointestinal: No: Nausea, Vomiting, Abdominal Pain, Diarrhea, Constipation, Melena, Hematochezia, Other Genitourinary: No Dysuria, No Frequency, No Incontinence, No Hematuria, No Retention, No Other Musculoskeletal: No: other, neck pain, shoulder pain, arm pain, back pain, hand pain, leg pain, foot pain Skin: No: Rash, Lesions, Jaundice, Bruising, Other Neurological: No: Weakness, Numbness, Incoordination, Change in speech, Confusion, Seizures, Other Allergies: Coded Allergies: NO KNOWN ALLERGIES (Unverified , 03/07/11) Medications Current Medications Medications Dose Ordered Sig/Yvonne Route Start Time Stop Time Status Last Admin Dose Admin Divalproex Sodium 750 mg BID PO 10/10/24 22:00 Azithromycin 250 ml @ 125 mls/hr DAILY IV 10/11/24 10:00 Memantine 5 mg DAILY PO 10/11/24 10:00 Atorvastatin Calcium 10 mg HS PO 10/10/24 22:00 Donepezil HCl 10 mg HS PO 10/10/24 22:00 Quetiapine Fumarate 200 mg HS PO 10/10/24 22:00 Rivaroxaban 20 mg QPM PO 10/11/24 18:00 Acetaminophen/ Hydrocodone Bitart 1 tab Q4HP PRN PO 10/10/24 20:30 Ondansetron HCl 4 mg Q4HP PRN IV 10/10/24 20:30 Docusate Sodium 100 mg BIDPRN PRN PO 10/10/24 20:30 Acetaminophen 650 mg Q6HP PRN PO 10/10/24 20:30 Hydralazine HCl 10 mg Q6HP PRN IV 10/10/24 20:45 Exam Vital Signs Vital Signs Date Time Temp Pulse Resp B/P (MAP) Pulse Ox O2 Delivery O2 Flow Rate FiO2 10/10/24 19:40 98.3 60 15 138/53 (81) 94 98.3 10/10/24 14:00 Room Air* 0 21 General Appearance: Alert, Cooperative, No acute distress, Other (Alert oriented x2) HEENT: Atraumatic, PERRLA, EOMI, Mucous membr. moist/pink Respiratory: Normal air movement, Other (Diminished breath sounds) Cardiovascular: Regular rate, Normal S1, Normal S2, No murmurs Abdominal: Normal bowel sounds, Soft, No tenderness, No hepatospenomegaly, No masses Extremities: No clubbing, No cyanosis, No edema, Normal pulses, No tenderness/swelling Skin: No rashes, No breakdown, No significant lesion Neuro: Normal speech, Normal tone, Sensation intact, Cranial nerves 3-12 NL, Reflexes 2+, Other (Generalized weakness) Psych/Mental Status: Mental status NL, Mood NL Labs/Xrays Labs Test 10/10/24 14:39 10/10/24 11:38 10/10/24 10:46 Range/Units Troponin I High Sensitivity 15 </=54 ng/L Lactic Acid Level 1.2 0.4-2.0 mmol/L White Blood Count 4.4 4.4-10.8 10^3/uL Red Blood Count 4.26 L 4.5-5.90 10^6/uL Hemoglobin 14.6 13.5-17.5 g/dL Hematocrit 42.5 41.0-53.0 % Mean Corpuscular Volume 99.8 80.0-100.0 fL Mean Corpuscular Hemoglobin 34.4 H 28.0-32.0 pg Mean Corpuscular Hemoglobin Concent 34.4 32.0-36.0 g/dL Red Cell Distribution Width 13.1 11.8-14.3 % Platelet Count 94 L 140-450 10^3/uL Mean Platelet Volume 7.4 6.9-10.8 fL Neutrophils (%) (Auto) 55.2 37.0-80.0 % Lymphocytes (%) (Auto) 33.7 10.0-50.0 % Monocytes (%) (Auto) 8.4 0.0-12.0 % Eosinophils (%) (Auto) 2.3 0.0-7.0 % Basophils (%) (Auto) 0.4 0.0-2.0 % Neutrophils # (Auto) 2.4 1.6-8.6 10 ^3/uL Lymphocytes # (Auto) 1.5 0.4-5.4 10 ^3/uL Monocytes # (Auto) 0.4 0-1.3 10 ^3/uL Eosinophils # (Auto) 0.1 0-0.8 10 ^3/uL Basophils # (Auto) 0 0-0.2 10 ^3/uL Nucleated Red Blood Cells 0.2 % Sodium Level 140 136-145 mmol/L Potassium Level 3.7 3.5-5.1 mmol/L Chloride Level 105 98-107 mmol/L Carbon Dioxide Level 28 20-31 mmol/L Anion Gap 7 5-15 Blood Urea Nitrogen 34 H 9-23 mg/dL Creatinine 1.82 H 0.700-1.30 mg/dL Glomerular Filtration Rate Calc 39 >90 mL/min BUN/Creatinine Ratio 18.7 10.0-20.0 Serum Glucose 89 74-106 mg/dL Calcium Level 9.5 8.7-10.4 mg/dL Total Bilirubin 0.5 0.2-1.0 mg/dL Aspartate Amino Transferase (AST) 33 13-40 U/L Alanine Aminotransferase (ALT) 11 7-40 U/L Alkaline Phosphatase 74 46-116 U/L B-Type Natriuretic Peptide 16.38 0-100 pg/mL Total Protein 6.8 5.7-8.2 g/dL Albumin 4.2 3.2-4.8 g/dL Lipase 33 12-53 U/L PATIENT: ZARINA GRIMALDO ACCT: [id number] UNIT: [id number] : 1950 LOC: ER ROOM / BED: / AGE / SEX: 74 / M ADM STATUS: REG ER SERVICE 1049 ORDERING PHYSICIAN: VA SCHMIDT DO PROCEDURE(s): ABPL - CT AB PEL WO CON-NO ORAL OR IV REASON: cp, LUQ pain ORDER NUMBER(s): [id number], ACCESSION NUMBER(s): [id number] EXAM: CT Abdomen and Pelvis Without Intravenous Contrast CLINICAL INDICATION: cp, LUQ pain TECHNIQUE: Axial computed tomography images of the abdomen and pelvis without intravenous contrast. This CT exam was performed using one or more of the following dose reduction techniques: automated exposure control, adjustment of the mA and/or kV according to patient size, and/or use of iterative reconstruction technique. CONTRAST: RADIATION DOSE: CTDIvol = 16.91 mGy, DLP = 983.34 mGy-cm COMPARISON: None FINDINGS: ARTIFACTS: Motion artifact. LUNG BASES: Bibasilar atelectasis or pneumonia. HEART: Mild cardiomegaly. ABDOMEN: LIVER: Fatty infiltration of the liver. GALLBLADDER AND BILE DUCTS: Cholelithiasis. No ductal dilation. PANCREAS: Unremarkable. No ductal dilation. SPLEEN: Unremarkable. No splenomegaly. ADRENALS: Unremarkable. No mass. KIDNEYS AND URETERS: Punctate left nephrolithiasis without hydronephrosis. Left renal cyst. STOMACH AND BOWEL: Fecal retention in the colon consistent with constipation. Air-fluid level in the: Could relate to recent diarrhea. Clinical correlation is recommended. No obstruction. No mucosal thickening. PELVIS: APPENDIX: No findings to suggest acute appendicitis. BLADDER: Distended urinary bladder. No stones. REPRODUCTIVE: Unremarkable as visualized. ABDOMEN and PELVIS: INTRAPERITONEAL SPACE: Unremarkable. No free air. No significant fluid collection. BONES/JOINTS: Multilevel degenerative change and disc disease of the lumbar spine. No acute fracture. No dislocation. SOFT TISSUES: Unremarkable. VASCULATURE: Indwelling IVC filter. No abdominal aortic aneurysm. LYMPH NODES: Unremarkable. No enlarged lymph nodes. OTHER FINDINGS: IMPRESSION: 1. Bibasilar atelectasis or pneumonia. 2. Cholelithiasis. 3. Fecal retention in the colon consistent with constipation. 4. Punctate left nephrolithiasis without hydronephrosis. 5. Air-fluid level in the: Could relate to recent diarrhea. Clinical correlation is recommended. ORDERING PHYSICIAN: AV SCHMIDT DO PROCEDURE(s): CXRP - CHEST PORTABLE REASON: cp ORDER NUMBER(s): [id number], ACCESSION NUMBER(s): [id number] EXAM: XR Chest, 1 View CLINICAL INDICATION: cp TECHNIQUE: Frontal view of the chest. COMPARISON: None FINDINGS: LUNGS AND PLEURAL SPACES: Mild congestive heart failure. No consolidation. No pneumothorax. HEART: Unremarkable. No cardiomegaly. MEDIASTINUM: Unremarkable. Normal mediastinal contour. BONES/JOINTS: Unremarkable. No acute fracture. TUBES, LINES AND DEVICES: Right-sided cardiac pacemaker. OTHER FINDINGS: IMPRESSION: Mild congestive heart failure. Assessment/Plan Assessment/Plan Chest pain Shortness of breaths Pneumonia, unspecified organisms Constipation Acute on chronic renal injury Generalized weakness Plan 1. Admit to telemetry unit 2. Breathing treatment 3. Pain control management 4. IV antibiotic management 5. Management of fluids and electrolytes 6. Consultation for hospitalist 7. Diagnostic test abdomen/pelvis CT 8. DVT prophylaxis--on aspirin 9. Repeat labs CBC, CMP in a.m. 10. Home medication reviewed and reconciled 11. Continue with current medical management 12. Treatment plan discussed with patient and RN. Patient verbalized understanding. Plan discussed with: Patient, Other (RN) My Orders Orders - MIGUEL QUEZAAD DNP Procedure Category Date Status Time Divalproex Dr Tablet PHA 10/10/24 In Process (Depakote "Dr" Tabl 22:00 Azithromycin 500mg/ PHA 10/11/24 In Process 250ml (Zithromax 50 10:00 Azithromycin 500mg/ PHA 10/10/24 In Process 250ml (Zithromax 50 20:30 Memantine Tablet PHA 10/11/24 In Process (Namenda Tablet) 10:00 Atorvastatin (Lipitor) PHA 10/10/24 In Process 22:00 Donepezil Tablet PHA 10/10/24 In Process (Aricept Tablet) 22:00 Quetiapine Fumarate PHA 10/10/24 In Process Tablet (Seroquel Tab 22:00 Rivaroxaban Tablet PHA 10/11/24 In Process (Xarelto Tablet) 18:00 Allergies MARTY 10/10/24 In Process 20:27 Code Status CODE 10/10/24 Transmitted 20:27 Oxygen Per Hour RT 10/10/24 Transmitted 20:27 Hydrocodone-Acet PHA 10/10/24 In Process 5/325mg Tab (Cicero 20:30 Ondansetron Hcl PHA 10/10/24 In Process (Zofran) 20:30 Docusate Sodium PHA 10/10/24 In Process Capsule (Colace 20:30 Complete Blood Count LAB 10/11/24 Verified 04:00 Comprehensive LAB 10/11/24 Verified Metabolic Panel 04:00 Cardiac DIET 10/11/24 Transmitted Diet-2gna,Lofat,Lochol Breakfast Condition: Serious MARTY 10/10/24 In Process 20:27 Acetaminophen Tablet PHA 10/10/24 In Process (Tylenol Tablet) 20:30 Bedrest With Bathroom MARTY 10/10/24 In Process Privileg 20:27 Sequential MARTY 10/10/24 In Process Compression Device Hydralazine Injection PHA 10/10/24 In Process (Apresoline Inject 20:45 Admit ADMIT 10/10/24 Transmitted 21:36 Nitroglycerin PHA 10/10/24 Transmitted Sublingual (Ntrostat 21:45 Morphine Sulfate PHA 10/10/24 Transmitted Injection 21:45 Stat Ekg For Chest MARTY 10/10/24 Transmitted Pain 21:36 Notify Of Changes MARTY 10/10/24 Transmitted From Base 21:36 Lab Pack Chemist For MARTY 10/10/24 Transmitted 24 Hours 21:36 Emergency Dysrhythmia MARTY 10/10/24 Transmitted Protocol 21:36 Rhythm Strips Once MARTY 10/10/24 Transmitted Every Shift 21:36 Oxygen By Nasal RT 10/10/24 Transmitted Cannula 21:36 Problem List: (1) Chest pain (2) Pneumonia, unspecified organism (3) Constipation (4) [id number] kidney injury (5) Shortness of breath (6) Generalized weakness Date of Service: Oct 10, 2024 Billing Provider: MIGUEL QUEZADA DNP Common Visit Codes: [id number] INP/OBS CARE (HIGH) MIGUEL QUEZADA DNP Oct 10, 2024 21:38
[2024-10-10] MEDS ORDERED: MORPHINE SULFATE INJ 2 MG/ml SYRG IV PRN (21:45)
[2024-10-10] MEDS ORDERED: NITROGLYCERIN 0.4 MG SL TAB SL PRN (21:45)
[2024-10-10] MEDS: LORazepam 2MG/ML-1ML VIAL IM PRN (22:43)
[2024-10-10] MEDS: AZITHROMYCIN 500MG/ 250ML 250 ML IV ONE (23:27)
[2024-10-11 04:22] LABS: Basophils # (auto) 0 10 ^3/uL (0-0.2); Eosinophils # (auto) 0.1 10 ^3/uL (0-0.8); Hemoglobin 13.8 g/dL (13.5-17.5); Lymphocytes # (auto) 1.4 10 ^3/uL (0.4-5.4); Neutrophils % (auto) 55.6 % (37.0-80.0); White Blood Cell 4.2 10^3/uL (4.4-10.8)
[2024-10-11 04:24] LABS: Basophils % (auto) 0.6 % (0.0-2.0); Hematocrit 39.4 % (41.0-53.0); Mean Corpuscular Hemoglobin 35.1 pg (28.0-32.0); Mean Corpuscular Volume 100.3 fL (80.0-100.0); Monocytes # (auto) 0.3 10 ^3/uL (0-1.3); Monocytes % (auto) 7.8 % (0.0-12.0); Neutrophils # (auto) 2.3 10 ^3/uL (1.6-8.6); Nucleated Red Blood Cells % 0.4 %; Platelet Count (auto) 81 10^3/uL (140-450); Red Blood Cells 3.93 10^6/uL (4.5-5.90)
[2024-10-11 04:56] LABS: Urine Bacteria None Seen /hpf (None Seen)
[2024-10-11 05:13] LABS: Urine Blood Negative /uL (Negative); Urine Clarity Clear (Clear); Urine Color Yellow (Yellow); Urine Mucus FEW (None Seen); Urine Protein, UAD Negative (Negative); Urine Specific Gravity 1.019 (1.001-1.035); Urine Squamous Epithelial Cell FEW /hpf (<5); Urine Urobilinogen Normal (Negative); Urine WBC 3 /HPF (0-3); Urine pH 5.5 (5.0-9.0)
[2024-10-11 05:49] LABS: Alanine Aminotransferase 15 U/L (7-40); Albumin 3.9 g/dL (3.2-4.8); Alkaline Phosphatase 74 U/L (46-116); Anion Gap 10 (5-15); BUN/Creatinine Ratio 18.1 (10.0-20.0); Bilirubin, Total 0.5 mg/dL (0.2-1.0); Potassium 3.6 mmol/L (3.5-5.1); Sodium 140 mmol/L (136-145); Total Protein 6.4 g/dL (5.7-8.2)
[2024-10-11 05:53] LABS: Aspartate Aminotransferase 44 U/L (13-40); Blood Urea Nitrogen 32 mg/dL (9-23); Carbon Dioxide 19 mmol/L (20-31); Chloride 111 mmol/L (98-107); Glucose 137 mg/dL (74-106)
[2024-10-11] MEDS: DOCUSATE SOD 100 MG CAP PO ONE (06:44)
[2024-10-11 09:00] VITALS: PULSE 60; RESP 16; O2SAT 97
[2024-10-11 09:49] VITALS: BP 125/71; PULSE 60; PULSE 91; RESP 19; O2SAT 91
[2024-10-11] MEDS: MEMANTINE HCL 5 MG TAB PO SCH (10:47)
[2024-10-11] MEDS: AZITHROMYCIN 500MG/ 250ML 250 ML IV SCH (10:48)
--- NOTE | 2024-10-11 13:18 | DVHPN2 ---
Reviewed: Care Plan, H&P, Labs, Medications, Previous Orders, Radiology Changes from previous H/P or p: No Changes Eyes: No Pain, No Vision change, No Conjunctivae inflammation, No Eyelid inflammation, No Other, No Redness ENT: No Ear pain, No Ear discharge, No Nose pain, No Nose discharge, No Nose congestion, No Mouth pain, No Mouth swelling, No Throat pain, No Throat swelling, No Other Cardiovascular: Chest Pain Respiratory: No Cough, No Dry; Shortness of breath; No SOB with excertion, No Wheezing, No Hemoptysis, No Pleuritic Pain, No Sputum, No Other Gastrointestinal: No Nausea, No Vomiting, No Abdominal Pain, No Diarrhea, No Constipation, No Melena, No Hematochezia, No Other Genitourinary: No Dysuria, No Frequency, No Incontinence, No Hematuria, No Retention, No Other Musculoskeletal: No other, No neck pain, No shoulder pain, No arm pain, No back pain, No hand pain, No leg pain, No foot pain Skin: No Rash, No Lesions, No Jaundice, No Bruising, No Other Objective Vitals Vital Signs Date Time Temp Pulse Resp B/P (MAP) Pulse Ox O2 Delivery O2 Flow Rate FiO2 10/11/24 11:00 65 14 122/77 (92) 98 10/11/24 09:49 Room Air* 0 21 10/11/24 09:01 97.1 97.1 Intake/Output Intake and Output 10/11/24 07:00 Intake Total 350 ml Balance 350 ml Intake IV Total 350 ml Medications Current Medications Medications Dose Ordered Sig/Yvonne Route Start Time Stop Time Status Last Admin Dose Admin Divalproex Sodium 750 mg BID PO 10/10/24 22:00 10/11/24 10:47 750 MG Azithromycin 250 ml @ 125 mls/hr DAILY IV 10/11/24 10:00 10/11/24 10:48 125 MLS/HR Memantine 5 mg DAILY PO 10/11/24 10:00 10/11/24 10:47 5 MG Atorvastatin Calcium 10 mg HS PO 10/10/24 22:00 10/10/24 21:24 10 MG Donepezil HCl 10 mg HS PO 10/10/24 22:00 10/10/24 21:24 10 MG Quetiapine Fumarate 200 mg HS PO 10/10/24 22:00 10/10/24 21:24 200 MG Rivaroxaban 20 mg QPM PO 10/11/24 18:00 Acetaminophen/ Hydrocodone Bitart 1 tab Q4HP PRN PO 10/10/24 20:30 Ondansetron HCl 4 mg Q4HP PRN IV 10/10/24 20:30 Acetaminophen 650 mg Q6HP PRN PO 10/10/24 20:30 Hydralazine HCl 10 mg Q6HP PRN IV 10/10/24 20:45 Nitroglycerin 0.4 mg Q5MINP PRN SL 10/10/24 21:45 Morphine Sulfate 2 mg Q30M PRN IV 10/10/24 21:45 Lorazepam 1 mg Q8HP PRN IM 10/10/24 22:15 10/10/24 22:43 1 MG Docusate Sodium 100 mg BID PO 10/11/24 22:00 Laboratory Results Laboratory Tests 10/11/24 03:57 Chemistry Test 10/11/24 03:57 Albumin 3.9 g/dL (3.2-4.8) Calcium Level 9.0 mg/dL (8.7-10.4) Total Protein 6.4 g/dL (5.7-8.2) LFT Test 10/11/24 03:57 Alanine Aminotransferase (ALT) 15 U/L (7-40) Alkaline Phosphatase 74 U/L (46-116) Aspartate Amino Transferase (AST) 44 U/L (13-40) H Total Bilirubin 0.5 mg/dL (0.2-1.0) Urinalysis Test 10/11/24 04:50 Urine Color Yellow (Yellow) Urine Clarity Clear (Clear) Urine pH 5.5 (5.0-9.0) Urine Specific [place] 1.019 (1.001-1.035) Urine Protein Negative (Negative) Urine Ketones Negative (Negative) Urine Blood Negative /uL (Negative) Urine Nitrite Negative (Negative) Urine Bilirubin Negative (Negative) Urine Urobilinogen Normal mg/dL (Negative) Urine Leukocyte Esterase Negative /uL (Negative) Urine RBC 1 /hpf (0 - 3) Urine Microscopic WBC 3 /HPF (0-3) Urine Squamous Epithelial Cells Few /hpf (<5) Urine Bacteria None seen /hpf (None Seen) Urine Mucus Few (None Seen) Urine Glucose Normal mg/dL (Normal) Labs and/or images reviewed: Labs reviewed by me, Image(s) reviewed by me Assessment/Plan Assessment/Plan Chest pain rule out coronary artery disease: Troponin negative x3 Treatment per ACS protocol, consult for Bilateral community-acquired pneumonia: Rocephin azithromycin Acute metabolic encephalopathy History of atrial fibrillation: Xarelto Dementia: Aricept and Namenda History of seizures: Depakote Depression: Seroquel Acute kidney injury: IV fluids Acute on chronic CHF exacerbation cardiology consult COPD exacerbation Hypercholesterolemia Hypertension History of [place] History of pacemaker Time spent 65 minutes Patient is full code Advanced care planning time 20 minutes Plan discussed with: Patient My Orders Orders - LYDIA FLORES MD Procedure Category Date Status Time Blood Culture ITZ 10/11/24 Logged 13:12 Ceftriaxone 1gm/50ml PHA 10/12/24 Logged D5w (Rocephin) 09:00 Ceftriaxone 1gm/50ml PHA 10/11/24 Logged D5w (Rocephin) 13:15 * Cardiology Consult CONS 10/11/24 Verified 13:15 Date of Service: Oct 11, 2024 Billing Provider: LYDIA FLORES MD Common Visit Codes: [id number] CARE 30-74 MIN LYDIA FLORES MD Oct 11, 2024 13:18
[2024-10-11 15:15] VITALS: BP 141/73; PULSE 60; RESP 18; TEMP 97.6; O2SAT 97
[2024-10-11 17:00] VITALS: BP 134/69; PULSE 60; RESP 18; TEMP 97.8; O2SAT 96
--- NOTE | 2024-10-11 18:08 | DVHINCON2 ---
Date Seen: Oct 11, 2024 Referring Physician MD Sunny Reason for Consultation Chest pain, CHF exacerbation History of Present Illness This is a 74-year-old male patient who presents to emergency room for chief complaint of chest pain. At the time of assessment, patient is alert to self and place. He is having intermittent periods of confusion. The patient was also extremely hard of hearing. He was noted to be a extremely poor historian. No family at bedside and no next of kin contact listed in patient's chart. He states that the chest pain began while he was sleeping yesterday. He does not know about what time of day it was. He describes it as unprovoked, inte rmittent, pressure-like in nature, and substernal across the left and right side of his chest. He denies any associated symptoms. He is unable to answer if there are any alleviating or aggravating factors. Initial twelve lead electrocardiogram reveals paced rhythm with ST segment depression noted to anteroseptal leads. Troponin levels flat at 15ng/L. Patient denies all medical history. The patient has been seen at this facility before and per records has been noted to have a history of hypertension, dyslipidemia, dementia, and obesity. Patient also noted to be on Xarelto therapy. Previous provider notes are conflicting as some have documented atrial fibrillation and others have documented reason for anticoagulation is for a previous PE. Unable to confirm at this time. Per chest x-ray, the patient was also noted to have a right-sided permanent pacemaker (Biotronik). The patient denies having a pacemaker despite evidence through imaging. Per records, the patient underwent a coronary angiogram with left heart catheterization on 12/20/2015 which revealed no coronary artery disease at that time. Unable to confirm if patient has had a more recent angiogram. Unable to confirm if the patient sees a bmx rider in the outpatient setting as patient is confused. Past Medical History Past medical history reviewed. No other significant than mentioned above. Past Surgical History permanent pacemaker explantation on 11/27/2011 Family History: Prostate carcinoma G8 FATHER Family History Family history reviewed. Social History Denies the use of tobacco, alcohol or illicit drugs. Allergies: Coded Allergies: NO KNOWN ALLERGIES (Unverified , 03/07/11) Home Meds Reported Medications Donepezil Hydrochloride (Aricept) 10 Mg Tab, 10 MG PO QHSP, TAB 04/26/19 Quetiapine Fumerate (Seroquel Xr) 200 Mg Tab, 200 MG PO QHSP for 30 Days, MG 04/26/19 Citalopram Hydrobromide (Celexa) 10 Mg Tab, 40 MG PO DAILY, TAB 04/26/19 Furosemide (Furosemide) 40 Mg Tab, 40 MG PO DAILY for 30 Days 04/26/19 Potassium Chloride (POTASSIUM CHLORIDE CR) 10 Meq Tb, 20 MEQ PO DAILY, TAB 04/26/19 Rivaroxaban (XARELTO) 20 Mg Tab, 1 TAB PO QPM, #30 TAB 5 Refills 01/26/19 Topiramate (Topamax) 50 Mg Tab, 50 MG PO DAILY, TAB 01/26/19 Memantine Hcl (NAMENDA TABLET) 5 Mg Tb, 10 MG PO HS 01/26/19 Ropinirole Hydrochloride (Requip) 1 Mg Tab, 1 MG PO TID, TAB 01/26/19 Atorvastatin Calcium (ATORVASTATIN CALCIUM) 10 Mg Tab, 10 MG PO HS, TAB 01/26/19 Finasteride (Finasteride) 5 Mg Tab, 1 TAB PO DAILY, #90 TAB 3 Refills 01/26/19 Divalproex Sodium (Depakote) 500 Mg Tab, 1500 MG PO HS, TAB 01/26/19 Home Meds Home medications reviewed. Current Medications Current Medications Medications (Trade) Dose Ordered Sig/Yvonne Route PRN Reason Start Time Stop Time Status Last Admin Divalproex Sodium (Depakote "Dr" Tablet) 750 mg BID PO 10/10/24 22:00 10/11/24 10:47 Azithromycin 250 ml @ 125 mls/hr DAILY IV 10/11/24 10:00 10/11/24 10:48 Memantine (Namenda Tablet) 5 mg DAILY PO 10/11/24 10:00 10/11/24 10:47 Atorvastatin Calcium (Lipitor) 10 mg HS PO 10/10/24 22:00 10/10/24 21:24 Donepezil HCl (Aricept Tablet) 10 mg HS PO 10/10/24 22:00 10/10/24 21:24 Quetiapine Fumarate (SEROquel TABLET) 200 mg HS PO 10/10/24 22:00 10/10/24 21:24 Rivaroxaban (Xarelto Tablet) 20 mg QPM PO 10/11/24 18:00 Acetaminophen/ Hydrocodone Bitart ([place] 5/325MG Tab) 1 tab Q4HP PRN PO MODERATE PAIN (4-6 PAIN SCALE) 10/10/24 20:30 Ondansetron HCl (Zofran) 4 mg Q4HP PRN IV NAUSEA / VOMITING 10/10/24 20:30 Docusate Sodium (Colace Capsule) 100 mg BIDPRN PRN PO FOR CONSTIPATION 10/10/24 20:30 10/11/24 06:32 DC Acetaminophen (Tylenol Tablet) 650 mg Q6HP PRN PO PAIN SCALE 1-3 OR TEMP>100.4 10/10/24 20:30 Hydralazine HCl (Apresoline Injection) 10 mg Q6HP PRN IV SBP>150 10/10/24 20:45 Nitroglycerin (Ntrostat Sublingual) 0.4 mg Q5MINP PRN SL FOR CHEST PAIN 10/10/24 21:45 Morphine Sulfate 2 mg Q30M PRN IV FOR CHEST PAIN 10/10/24 21:45 Lorazepam (Ativan Inj) 1 mg Q8HP PRN IM ANXIETY 10/10/24 22:15 10/10/24 22:43 Docusate Sodium (Colace Capsule) 100 mg BID PO 10/11/24 22:00 Ceftriaxone Sodium 50 ml @ 100 mls/hr DAILY@09 IV 10/12/24 09:00 Review of Systems Constitutional: No symptom reported Ears, Nose, & Throat: No symptom reported Eyes: No symptom reported Neurological: No symptoms reported Pulmonary/Respiratory: No symptoms reported Cardiovascular: Chest pain Gastrointestinal: No symptom reported Genitourinary: No symptom reported Musculoskeletal: No symptom reported Skin: No symptom reported Psychiatric: No symptom reported Endocrine: No symptom reported Hematologic/Lymphatic: No symptom reported Vital Signs Vital Signs Date Time Temp Pulse Resp B/P (MAP) Pulse Ox O2 Delivery O2 Flow Rate FiO2 10/11/24 17:00 97.8 60 18 134/69 (90) 96 97.8 10/11/24 09:49 Room Air* 0 21 Physical Exam General Appearance: Cooperative. Well-developed. Well-nourished. No acute distress. Pulmonary/Respiratory: Clear, bilateral breaths sounds. Cardiovascular/Chest: Regular rate and rhythm. Peripheral Pulses: 2+ Radial (R). 2+ Radial (L). Abdominal Exam: Normal bowel sounds. Ankle Exam: 3+ pitting edema Lower extremities: 3+ pitting edema Neuro/Mental Status: A/OX2, confused Thoughts/Psych: Normal thought pattern. Appropriate mood and affect. Good judgment and insight. Appearance: No acute distress. Skin Exam: Shiny, discoloration to bilateral lower legs. Redness noted to right outer thigh Labs/Diagnostic Data Labs Test 10/11/24 04:50 10/11/24 03:57 10/10/24 14:39 10/10/24 11:38 Range/Units Urine Color Yellow Yellow Urine Clarity Clear Clear Urine pH 5.5 5.0-9.0 Urine Specific [place] 1.019 1.001-1.035 Urine Protein Negative Negative Urine Ketones Negative Negative Urine Blood Negative Negative /uL Urine Nitrite Negative Negative Urine Bilirubin Negative Negative Urine Urobilinogen Normal Negative mg/dL Urine Leukocyte Esterase Negative Negative /uL Urine RBC 1 0 - 3 /hpf Urine Microscopic WBC 3 0-3 /HPF Urine Squamous Epithelial Cells Few <5 /hpf Urine Bacteria None seen None Seen /hpf Urine Mucus Few None Seen Urine Glucose Normal Normal mg/dL White Blood Count 4.2 L 4.4-10.8 10^3/uL Red Blood Count 3.93 L 4.5-5.90 10^6/uL Hemoglobin 13.8 13.5-17.5 g/dL Hematocrit 39.4 L 41.0-53.0 % Mean Corpuscular Volume 100.3 H 80.0-100.0 fL Mean Corpuscular Hemoglobin 35.1 H 28.0-32.0 pg Mean Corpuscular Hemoglobin Concent 35.0 32.0-36.0 g/dL Red Cell Distribution Width 13.0 11.8-14.3 % Platelet Count 81 L 140-450 10^3/uL Mean Platelet Volume 6.9 6.9-10.8 fL Neutrophils (%) (Auto) 55.6 37.0-80.0 % Lymphocytes (%) (Auto) 34.0 10.0-50.0 % Monocytes (%) (Auto) 7.8 0.0-12.0 % Eosinophils (%) (Auto) 2.0 0.0-7.0 % Basophils (%) (Auto) 0.6 0.0-2.0 % Neutrophils # (Auto) 2.3 1.6-8.6 10 ^3/uL Lymphocytes # (Auto) 1.4 0.4-5.4 10 ^3/uL Monocytes # (Auto) 0.3 0-1.3 10 ^3/uL Eosinophils # (Auto) 0.1 0-0.8 10 ^3/uL Basophils # (Auto) 0 0-0.2 10 ^3/uL Nucleated Red Blood Cells 0.4 % Sodium Level 140 136-145 mmol/L Potassium Level 3.6 3.5-5.1 mmol/L Chloride Level 111 H 98-107 mmol/L Carbon Dioxide Level 19 L 20-31 mmol/L Anion Gap 10 5-15 Blood Urea Nitrogen 32 H 9-23 mg/dL Creatinine 1.77 H 0.700-1.30 mg/dL Glomerular Filtration Rate Calc 40 >90 mL/min BUN/Creatinine Ratio 18.1 10.0-20.0 Serum Glucose 137 H 74-106 mg/dL Calcium Level 9.0 8.7-10.4 mg/dL Total Bilirubin 0.5 0.2-1.0 mg/dL Aspartate Amino Transferase (AST) 44 H 13-40 U/L Alanine Aminotransferase (ALT) 15 7-40 U/L Alkaline Phosphatase 74 46-116 U/L Total Protein 6.4 5.7-8.2 g/dL Albumin 3.9 3.2-4.8 g/dL Troponin I High Sensitivity 15 </=54 ng/L Lactic Acid Level 1.2 0.4-2.0 mmol/L Test 10/10/24 10:46 Range/Units B-Type Natriuretic Peptide 16.38 0-100 pg/mL Lipase 33 12-53 U/L Assessment Chest pain, possibly cardiac Rule out structural heart disease Hypertension Dyslipidemia Questionable history of coronary artery disease Questionable atrial fibrillation (on Xarelto) Dementia Seizures Morbid obesity Plan/Recommendation We will continue with following plan/recommendations (Dr. Choi): Case discussed with . We will proceed with obtaining a transthoracic echocardiogram to evaluate cardiac function. Patient was altered at time of assessment and unable to verify past medical history. Patient denies any chest pain at time of assessment. Troponin levels have been negative. At this time, we will treat the patient conservatively given his acute kidney injury, known history of dementia and very poor functional capacity being bed-bound. We will order a pacemaker interrogation. In the meantime, continue with medical management, close cardiac surveillance and notify cardiology team for any ECG changes. Thank you for allowing us to care for this patient. Please call with any questions or concerns. Critical care time spent: 44 minutes This medical document was created using an electronic medical record system with voice recognition software and computerized dictation system. Although this document has been carefully reviewed, there might still be some phonetic and typographical errors. Occasional wrong-word or ``sound-alike substitutions may have occurred due to the inherent limitations of voice recognition software. These areas are purely typographical due to imperfections of the software programs and do not reflect any compromise in the patient's medical care. Please read the chart carefully and recognize, using context, where these substitutions have occurred. Plan discussed with: Patient, Other (Bedside RN) NYHA 2 Physical activity limitations: NA Date of Service: Oct 11, 2024 Billing Provider: MARSHALL MENEZES Cardiology Common Codes: 16807-GBUVDGY INP/OBS CARE (High) Cardiology Consultation Codes: [id number] CONSULT <45MIN MARSHALL MENEZES Oct 11, 2024 18:08
[2024-10-11] MEDS: RIVAROXABAN 20 MG TAB PO SCH (18:32)
[2024-10-11 20:00] VITALS: PULSE 60
[2024-10-11 21:00] VITALS: BP 123/74; PULSE 61; RESP 19; TEMP 98.7; O2SAT 94
[2024-10-11] MEDS: DOCUSATE SOD 100 MG CAP PO SCH (21:55)
[2024-10-12] VITALS (8 sets, daily range): BP systolic 112–145; BP diastolic 67–79; PULSE 51–80; RESP 12–20; TEMP 97.4–98.8; O2SAT 93–96
[2024-10-12 07:49] LABS: Anion Gap 9 (5-15); Carbon Dioxide 21 mmol/L (20-31); Sodium 140 mmol/L (136-145)
[2024-10-12 07:50] LABS: Calcium 9.1 mg/dL (8.7-10.4)
[2024-10-12 07:51] LABS: Chloride 110 mmol/L (98-107); Potassium 3.5 mmol/L (3.5-5.1)
[2024-10-12 07:55] LABS: BUN/Creatinine Ratio 20.9 (10.0-20.0); Glucose 96 mg/dL (74-106)
[2024-10-12 07:56] LABS: LDL Cholesterol 97 mg/dL (< 100)
[2024-10-12 07:57] LABS: Cholesterol 144 mg/dL (< 200); Platelet Count (auto) 84 10^3/uL (140-450); White Blood Cell 4.6 10^3/uL (4.4-10.8)
[2024-10-12 07:59] LABS: Hematocrit 40.9 % (41.0-53.0); Hemoglobin 14.3 g/dL (13.5-17.5); Mean Corpuscular Hgb Conc. 35.1 g/dL (32.0-36.0); Mean Corpuscular Volume 99.7 fL (80.0-100.0); Red Cell Distribution Width 13.2 % (11.8-14.3)
[2024-10-12 08:01] LABS: Basophils % (manual) 0 (0.0-2.0); Blast Cells 0; Metamyelocytes % 0; Myelocytes % 0; Promyelocytes % 0; Reactive Lymphocytes 0
[2024-10-12 08:05] LABS: Blood Urea Nitrogen 36 mg/dL (9-23); HDL Cholesterol 19 mg/dL (40-59); Triglycerides 206 mg/dL (< 150)
[2024-10-12 08:34] LABS: Band Neutrophils % (manual) 4; Eosinophils % (manual) 2 (0-7); Lymphocytes % (manual) 36 (10.0-50.0); Macrocytosis Slight; Monocytes % (manual) 9 (0-12); Platelet Estimate Decreased
[2024-10-12] MEDS: cefTRIAXone 1GM/50ML D5W 50 ML IV ONE (08:34)
[2024-10-12] MEDS: cefTRIAXone 1GM/50ML D5W 50 ML IV SCH (09:30)
--- NOTE | 2024-10-12 09:42 | DVHPN2 ---
Progress Note Date Seen: Oct 12, 2024 Medical Necessity Reason Pt with a Central, PICC or Fol: No Subjective Other Systems: pt being moved by RN pt hard to hear no chest pain he has foot pain Objective vital signs Vital Sign Date Time Temp Pulse Resp B/P (MAP) Pulse Ox O2 Delivery O2 Flow Rate FiO2 10/12/24 05:00 98.8 61 18 145/76 (99) 96 98.8 10/11/24 20:00 Room Air* 0 21 Total Intake and Output 10/11/24 10/11/24 10/12/24 15:00 23:00 07:00 Intake Total 200 ml Output Total 600 ml 350 ml Balance -400 ml -350 ml medications Current Medications Medications Dose Ordered Sig/Yvonne Route Start Time Stop Time Status Last Admin Dose Admin Divalproex Sodium 750 mg BID PO 10/10/24 22:00 10/12/24 09:21 750 MG Azithromycin 250 ml @ 125 mls/hr DAILY IV 10/11/24 10:00 10/11/24 10:48 125 MLS/HR Memantine 5 mg DAILY PO 10/11/24 10:00 10/12/24 09:21 5 MG Atorvastatin Calcium 10 mg HS PO 10/10/24 22:00 10/11/24 21:54 10 MG Donepezil HCl 10 mg HS PO 10/10/24 22:00 10/11/24 21:54 10 MG Quetiapine Fumarate 200 mg HS PO 10/10/24 22:00 10/11/24 21:54 200 MG Rivaroxaban 20 mg QPM PO 10/11/24 18:00 10/11/24 18:32 20 MG Acetaminophen/ Hydrocodone Bitart 1 tab Q4HP PRN PO 10/10/24 20:30 Ondansetron HCl 4 mg Q4HP PRN IV 10/10/24 20:30 Acetaminophen 650 mg Q6HP PRN PO 10/10/24 20:30 Hydralazine HCl 10 mg Q6HP PRN IV 10/10/24 20:45 Nitroglycerin 0.4 mg Q5MINP PRN SL 10/10/24 21:45 Morphine Sulfate 2 mg Q30M PRN IV 10/10/24 21:45 Lorazepam 1 mg Q8HP PRN IM 10/10/24 22:15 10/10/24 22:43 1 MG Docusate Sodium 100 mg BID PO 10/11/24 22:00 10/12/24 09:22 100 MG Ceftriaxone Sodium 50 ml @ 100 mls/hr DAILY@09 IV 10/12/24 09:00 10/12/24 09:30 100 MLS/HR Examination: GENERAL:Abnormal, HEENT:Abnormal, LUNGS:Abnormal, CVS:Abnormal, ABDOMEN:Abnormal laboratory and microbiology Laboratory Tests 10/12/24 07:22 Test 10/12/24 07:22 Range/Units Serum Glucose 96 74-106 mg/dL Problem List/Assessment/Plan Problem List/Assessment/Plan Chest pain, possibly cardiac Rule out structural heart disease Hypertension Dyslipidemia Questionable history of coronary artery disease Questionable atrial fibrillation (on Xarelto) Dementia Seizures Morbid obesity ?dry gangrene of toes, ulcer consider podiatry eval fu echo conservative management given age poor health Plan discussed with: Patient, Other (rn) Date of Service: Oct 12, 2024 Billing Provider: VANIA MCKNIGHT MD Common Visit Codes: NOT BILLABLE VANIA MCKNIGHT MD Oct 12, 2024 09:42
--- NOTE | 2024-10-12 10:09 | DVHPN2 ---
Reviewed: Care Plan, H&P, Labs, Medications, Previous Orders, Radiology Changes from previous H/P or p: No Changes Eyes: No Pain, No Vision change, No Conjunctivae inflammation, No Eyelid inflammation, No Other, No Redness ENT: No Ear pain, No Ear discharge, No Nose pain, No Nose discharge, No Nose congestion, No Mouth pain, No Mouth swelling, No Throat pain, No Throat swelling, No Other Cardiovascular: Chest Pain Respiratory: No Cough, No Dry; Shortness of breath; No SOB with excertion, No Wheezing, No Hemoptysis, No Pleuritic Pain, No Sputum, No Other Gastrointestinal: No Nausea, No Vomiting, No Abdominal Pain, No Diarrhea, No Constipation, No Melena, No Hematochezia, No Other Genitourinary: No Dysuria, No Frequency, No Incontinence, No Hematuria, No Retention, No Other Musculoskeletal: No other, No neck pain, No shoulder pain, No arm pain, No back pain, No hand pain, No leg pain, No foot pain Skin: No Rash, No Lesions, No Jaundice, No Bruising, No Other Objective Vitals Vital Signs Date Time Temp Pulse Resp B/P (MAP) Pulse Ox O2 Delivery O2 Flow Rate FiO2 10/12/24 08:30 97.4 60 12 117/69 (85) 95 97.4 10/11/24 20:00 Room Air* 0 21 Intake/Output Intake and Output 10/12/24 07:00 Intake Total 200 ml Output Total 950 ml Balance -750 ml Intake Oral 200 ml Output Urine Total 950 ml Medications Current Medications Medications Dose Ordered Sig/Yvonne Route Start Time Stop Time Status Last Admin Dose Admin Divalproex Sodium 750 mg BID PO 10/10/24 22:00 10/12/24 09:21 750 MG Azithromycin 250 ml @ 125 mls/hr DAILY IV 10/11/24 10:00 10/11/24 10:48 125 MLS/HR Memantine 5 mg DAILY PO 10/11/24 10:00 10/12/24 09:21 5 MG Atorvastatin Calcium 10 mg HS PO 10/10/24 22:00 10/11/24 21:54 10 MG Donepezil HCl 10 mg HS PO 10/10/24 22:00 10/11/24 21:54 10 MG Quetiapine Fumarate 200 mg HS PO 10/10/24 22:00 10/11/24 21:54 200 MG Rivaroxaban 20 mg QPM PO 10/11/24 18:00 10/11/24 18:32 20 MG Acetaminophen/ Hydrocodone Bitart 1 tab Q4HP PRN PO 10/10/24 20:30 Ondansetron HCl 4 mg Q4HP PRN IV 10/10/24 20:30 Acetaminophen 650 mg Q6HP PRN PO 10/10/24 20:30 Hydralazine HCl 10 mg Q6HP PRN IV 10/10/24 20:45 Nitroglycerin 0.4 mg Q5MINP PRN SL 10/10/24 21:45 Morphine Sulfate 2 mg Q30M PRN IV 10/10/24 21:45 Lorazepam 1 mg Q8HP PRN IM 10/10/24 22:15 10/10/24 22:43 1 MG Docusate Sodium 100 mg BID PO 10/11/24 22:00 10/12/24 09:22 100 MG Ceftriaxone Sodium 50 ml @ 100 mls/hr DAILY@09 IV 10/12/24 09:00 10/12/24 09:30 100 MLS/HR Laboratory Results Laboratory Tests 10/12/24 07:22 Chemistry Test 10/12/24 07:22 Calcium Level 9.1 mg/dL (8.7-10.4) Lipid panel Test 10/12/24 07:22 Cholesterol Level 144 mg/dL (< 200) HDL Cholesterol 19 mg/dL (40-59) L Triglycerides Level 206 mg/dL (< 150) H HgA1c, TSH Test 10/12/24 07:22 Hemoglobin A1c 5.1 % A1C (<5.7) Thyroid Stimulating Hormone (TSH) 2.26 uIU/mL (0.55-4.78) Urinalysis Test 10/11/24 04:50 Urine Color Yellow (Yellow) Urine Clarity Clear (Clear) Urine pH 5.5 (5.0-9.0) Urine Specific [place] 1.019 (1.001-1.035) Urine Protein Negative (Negative) Urine Ketones Negative (Negative) Urine Blood Negative /uL (Negative) Urine Nitrite Negative (Negative) Urine Bilirubin Negative (Negative) Urine Urobilinogen Normal mg/dL (Negative) Urine Leukocyte Esterase Negative /uL (Negative) Urine RBC 1 /hpf (0 - 3) Urine Microscopic WBC 3 /HPF (0-3) Urine Squamous Epithelial Cells Few /hpf (<5) Urine Bacteria None seen /hpf (None Seen) Urine Mucus Few (None Seen) Urine Glucose Normal mg/dL (Normal) Labs and/or images reviewed: Labs reviewed by me, Image(s) reviewed by me Assessment/Plan Assessment/Plan Chest pain rule out coronary artery disease: Troponin negative x3 Treatment per ACS protocol, consult for Dr.Mehta chen, advised conservative management Bilateral community-acquired pneumonia: Rocephin azithromycin Cellulitis bilateral feet: Continue antibiotics Rocephin azithromycin, consult for podiatric Dr. Canales Swelling bilateral lower extremities rule out DVT: Venous ultrasound ordered Acute metabolic encephalopathy History of atrial fibrillation: Xarelto Dementia: Aricept and Namenda History of seizures: Depakote Depression: Seroquel Acute kidney injury: IV fluids Acute on chronic CHF exacerbation cardiology consult COPD exacerbation Hypercholesterolemia Hypertension History of [place] History of pacemaker Time spent 65 minutes Patient is full code Advanced care planning time 20 minutes Patient came from board and care Unable to contact the family members Plan discussed with: Patient My Orders Orders - LYDIA FLORES MD Procedure Category Date Status Time Blood Culture ITZ 10/11/24 In Process 13:12 Ceftriaxone 1gm/50ml PHA 10/12/24 In Process D5w (Rocephin) 09:00 * Cardiology Consult CONS 10/11/24 Transmitted 13:15 * Wound Consult CONS 10/11/24 Transmitted Date of Service: Oct 12, 2024 Billing Provider: LYDIA FLORES MD Common Visit Codes: [id number] CARE 30-74 MIN LYDIA FLORES MD Oct 12, 2024 10:09
[2024-10-12] MEDS ORDERED: ENOXAPARIN SOD 40 MG/0.4 ML SYRINGE SC ONE (11:00)
--- NOTE | 2024-10-12 11:42 | DVH ---
Bilateral lower extremity venous duplex Clinical History: yeni LLE swelling Comparison: None Technique: Duplex Doppler evaluation of the deep venous systems of both lower extremities from the co mmon femoral veins to the popliteal veins including color Doppler and spectral/pulsed waveform analys is was performed. Findings: RIGHT SIDE: The common femoral vein demonstrates appropriate compressibility and waveform variability . There is compressibility/patency of the great saphenous vein at the proximal thigh . The femoral vein demonstrates appropriate compressibility and waveform variability . The deep femoral vein demonstrates appropriate compressibility and waveform variability . The popliteal vein demonstrates appropriate compressibility and waveform variability . There is color flow at the tibioperoneal trunk and in the posterior tibial vein. Subcutaneous edema noted in the right calf. LEFT SIDE: The common femoral vein demonstrates appropriate compressibility and waveform variability . There is compressibility/patency of the great saphenous vein at the proximal thigh . The femoral vein demonstrates appropriate compressibility and waveform variability . The deep femoral vein demonstrates appropriate compressibility and waveform variability . The popliteal vein demonstrates appropriate compressibility and waveform variability . There is color flow at the tibioperoneal trunk and in the posterior tibial vein. Impression: 1. No right or left femoropopliteal venous thrombosis. 2. Subcutaneous edema in the right calf.
--- NOTE | 2024-10-12 14:42 | DVHINCON2 ---
Date Seen: Oct 12, 2024 Reason for Consultation Left foot cellulitis History of Present Illness The patient is a 74-year-old male bed-bound with multiple past medical history including AFib, CHF, COPD, arthritis, dementia, and MD who presented to [facility] ED with complaint of chest pain. Patient has been experiencing confusion state, generalized weakness, getting worse that prompted this visit. Patient points to his left chest under his breast when asked where is the pain. Patient endorsed to EMS that his pain was 9/10 and is tender to palpation. Jessica lopez was seen and evaluated in the ED, laboratory data shows WBC 4.4, platelets 59256, sodium 140, potassium 3.7, BUN 34, creatinine 1.82, GFR 39, glucose 89, troponin 15, BNP 16.38. Chest x-ray revealing mild congestive heart failure. Abdomen/pelvis CT revealing bibasilar atelectasis or pneumonia, cholelithiasis, fecal retention in the colon consistent with constipation, punctuate left nephrolithiasis without hydronephrosis. Patient was started on IV antibiotic regimen azithromycin, please see medication orders section in the computer. On my assessment, patient denied chest pain, no headache, no dizziness, currently on oxygen, no nausea, no vomiting, no fever, no chills. Patient was admitted for further evaluation and medical management. Past Medical History See H&P Past Surgical History See H&P Family History: Prostate carcinoma G8 FATHER Allergies: Coded Allergies: NO KNOWN ALLERGIES (Unverified , 03/07/11) Home Meds Reported Medications Donepezil Hydrochloride (Aricept) 10 Mg Tab, 10 MG PO QHSP, TAB 04/26/19 Quetiapine Fumerate (Seroquel Xr) 200 Mg Tab, 200 MG PO QHSP for 30 Days, MG 04/26/19 Citalopram Hydrobromide (Celexa) 10 Mg Tab, 40 MG PO DAILY, TAB 04/26/19 Furosemide (Furosemide) 40 Mg Tab, 40 MG PO DAILY for 30 Days 04/26/19 Potassium Chloride (POTASSIUM CHLORIDE CR) 10 Meq Tb, 20 MEQ PO DAILY, TAB 04/26/19 Rivaroxaban (XARELTO) 20 Mg Tab, 1 TAB PO QPM, #30 TAB 5 Refills 01/26/19 Topiramate (Topamax) 50 Mg Tab, 50 MG PO DAILY, TAB 01/26/19 Memantine Hcl (NAMENDA TABLET) 5 Mg Tb, 10 MG PO HS 01/26/19 Ropinirole Hydrochloride (Requip) 1 Mg Tab, 1 MG PO TID, TAB 01/26/19 Atorvastatin Calcium (ATORVASTATIN CALCIUM) 10 Mg Tab, 10 MG PO HS, TAB 01/26/19 Finasteride (Finasteride) 5 Mg Tab, 1 TAB PO DAILY, #90 TAB 3 Refills 01/26/19 Divalproex Sodium (Depakote) 500 Mg Tab, 1500 MG PO HS, TAB 01/26/19 Current Medications Current Medications Medications (Trade) Dose Ordered Sig/Yvonne Route PRN Reason Start Time Stop Time Status Last Admin Rivaroxaban (Xarelto Tablet) 20 mg QPM PO 10/11/24 18:00 10/11/24 18:32 Docusate Sodium (Colace Capsule) 100 mg BID PO 10/11/24 22:00 10/12/24 09:22 Ceftriaxone Sodium 50 ml @ 100 mls/hr DAILY@09 IV 10/12/24 09:00 10/12/24 09:30 Enoxaparin Sodium (Lovenox) 40 mg DAILY SC 10/13/24 10:00 10/12/24 11:13 DC Vital Signs Vital Signs Date Time Temp Pulse Resp B/P (MAP) Pulse Ox O2 Delivery O2 Flow Rate FiO2 10/12/24 12:30 98.0 51 18 112/67 (82) 93 98.0 10/11/24 20:00 Room Air* 0 21 Physical Exam DERMATOLOGIC EXAM: - Skin is dry and cool to the touch dry bilaterally. - Nails 1-5 of the bilateral foot are thickened, discolored, dystrophic, and tender to palpate with subungual debris - Hair loss noted to bilateral feet - multiple superficial blood blisters VASCULAR EXAM: - DP and PT pulses are palpable bilaterally. - SPORTS PHYSICAL THERAPIST is brisk to all digits. - Feet are cool to touch compared to lower legs bilaterally. NEUROLOGIC EXAM: - Normal light touch sensation to the superficial peroneal, deep peroneal, sural, saphenous, and tibial nerve branches. - Protective sensation is diminished as tested with a 5.07 10g [place]-Vandana bilaterally. MUSCULOSKELETAL EXAM: - No gross deformities - Muscle strength is 5/5 and active motion is pain-free and symmetrical bilaterally - No pain or crepitation with passive range of motion bilaterally to all major pedal joints Labs/Diagnostic Data Labs Test 10/12/24 07:22 10/11/24 04:50 10/11/24 03:57 10/10/24 14:39 Range/Units White Blood Count 4.6 4.4-10.8 10^3/uL Red Blood Count 4.10 L 4.5-5.90 10^6/uL Hemoglobin 14.3 13.5-17.5 g/dL Hematocrit 40.9 L 41.0-53.0 % Mean Corpuscular Volume 99.7 80.0-100.0 fL Mean Corpuscular Hemoglobin 35.0 H 28.0-32.0 pg Mean Corpuscular Hemoglobin Concent 35.1 32.0-36.0 g/dL Red Cell Distribution Width 13.2 11.8-14.3 % Platelet Count 84 L 140-450 10^3/uL Mean Platelet Volume 7.2 6.9-10.8 fL Neutrophils (%) (Auto) 37.0-80.0 % Lymphocytes (%) (Auto) 10.0-50.0 % Monocytes (%) (Auto) 0.0-12.0 % Basophils (%) (Auto) 0.0-2.0 % Neutrophils # (Auto) 1.6-8.6 10 ^3/uL Lymphocytes # (Auto) 0.4-5.4 10 ^3/uL Monocytes # (Auto) 0-1.3 10 ^3/uL Differential Total Cells Counted 100.0 100 Neutrophils % (Manual) 49 37.0-80.0 Band Neutrophils % (Manual) 4 Lymphocytes % (Manual) 36 10.0-50.0 Monocytes % (Manual) 9 0-12 Eosinophils % (Manual) 2 0-7 Basophils % (Manual) 0 0.0-2.0 Metamyelocytes % (manual) 0 Myelocytes % (Manual) 0 Promyelocytes % (Manual) 0 Blast Cells % (Manual) 0 Reactive Lymphocytes 0 Platelet Estimate Decreased Macrocytosis Slight Sodium Level 140 136-145 mmol/L Potassium Level 3.5 3.5-5.1 mmol/L Chloride Level 110 H 98-107 mmol/L Carbon Dioxide Level 21 20-31 mmol/L Anion Gap 9 5-15 Blood Urea Nitrogen 36 H 9-23 mg/dL Creatinine 1.72 H 0.700-1.30 mg/dL Glomerular Filtration Rate Calc 41 >90 mL/min BUN/Creatinine Ratio 20.9 H 10.0-20.0 Serum Glucose 96 74-106 mg/dL Hemoglobin A1c 5.1 <5.7 % A1C Calcium Level 9.1 8.7-10.4 mg/dL Triglycerides Level 206 H < 150 mg/dL Cholesterol Level 144 < 200 mg/dL LDL Cholesterol 97 < 100 mg/dL HDL Cholesterol 19 L 40-59 mg/dL Thyroid Stimulating Hormone (TSH) 2.26 0.55-4.78 uIU/mL Urine Color Yellow Yellow Urine Clarity Clear Clear Urine pH 5.5 5.0-9.0 Urine Specific [place] 1.019 1.001-1.035 Urine Protein Negative Negative Urine Ketones Negative Negative Urine Blood Negative Negative /uL Urine Nitrite Negative Negative Urine Bilirubin Negative Negative Urine Urobilinogen Normal Negative mg/dL Urine Leukocyte Esterase Negative Negative /uL Urine RBC 1 0 - 3 /hpf Urine Microscopic WBC 3 0-3 /HPF Urine Squamous Epithelial Cells Few <5 /hpf Urine Bacteria None seen None Seen /hpf Urine Mucus Few None Seen Urine Glucose Normal Normal mg/dL Eosinophils (%) (Auto) 2.0 0.0-7.0 % Eosinophils # (Auto) 0.1 0-0.8 10 ^3/uL Basophils # (Auto) 0 0-0.2 10 ^3/uL Nucleated Red Blood Cells 0.4 % Total Bilirubin 0.5 0.2-1.0 mg/dL Aspartate Amino Transferase (AST) 44 H 13-40 U/L Alanine Aminotransferase (ALT) 15 7-40 U/L Alkaline Phosphatase 74 46-116 U/L Total Protein 6.4 5.7-8.2 g/dL Albumin 3.9 3.2-4.8 g/dL Troponin I High Sensitivity 15 </=54 ng/L Test 10/10/24 11:38 10/10/24 10:46 Range/Units Lactic Acid Level 1.2 0.4-2.0 mmol/L B-Type Natriuretic Peptide 16.38 0-100 pg/mL Lipase 33 12-53 U/L Problems(with codes): (1) History of epilepsy (2) Leukopenia (3) Thrombocytopenia (4) Hearing impairment (5) Chronic kidney disease, stage 3 (6) Constipation (7) Chest pain (8) Pneumonia (9) Abnormal EKG (10) T wave inversion in EKG (11) Generalized weakness (12) Pneumonia, unspecified organism (13) Glugd-am-kjniusi kidney injury (14) Shortness of breath Plan/Recommendation ASSESSMENT: Patient is a 74-year-old seen on the floor for multiple superficial blood blisters PLAN: - The patients chart was reviewed, clinical findings were discussed with the patient, the etiologies of the conditions were discussed in detail, and a treatment plan was agreed to at this time, with both oral and written instru ctions provided. - reviewed advanced imaging - discussed that it just superficial blisters - does not appear a deeper infection - no indication for surgery at this point - can keep dry with Betadine painted - can follow up with me 1 week as an outpatient All questions were answered and concerns addressed to the patient's satisfaction. The patient was given the phone number to the clinic and was told how to make contact with the clinic should any concerns or questions arise. Patient understands that if any questions or concerns arise prior to the next appointment, we should be contacted immediately. FOLLOW-UP: Follow up while outpatient Plan discussed with: Patient Date of Service: Oct 12, 2024 Billing Provider: SHAWNEE FRAGOSO DPM Common Visit Codes: CONSULT ONLY Consultation Codes: [id number] CONSULT <80MIN SHAWNEE FRAGOSO DPM Oct 12, 2024 14:42
--- NOTE | 2024-10-12 15:13 | DVHSR ---
APPROVED REPORT EXAM: Two-dimensional and M-mode echocardiogram with Doppler and color Doppler. Blood Pressure: 145/76 mmHg INDICATION Eval cardiac function RISK FACTORS Height: 71, Weight: 254 DIMENSIONS LVDd3.9 (3.8-5.7cm)LA (2D) (1.9-4.0cm)Aortic Root4.5 (2.0-3.7cm) LVDs2.8 (2.5-4.0cm)LA (MM) (1.9-4.0cm)Aortic Cusp Exc2.2 (1.5-2.0cm) EF (%) 55.0 (55-70%)Rt. Atrium (1.9-4.0cm)Asc. Aorta cm Mitral Valve MitralMitral Stenosis E/A ratio0.02D MVAcm2 Aortic Valve Aortic ValveAortic Stenosis LVOT Diameter2.5 (1.8-2.4cm)Doppler AVAcm2 Other Information Technically limited study due to body habitus, patient position, patient moving and patient combativ e. limited study. Conclusion very limited study lvef 55% RV enlarged no severe valves not well assessed pt combative with tech
[2024-10-12] MEDS: FUROSEMIDE 40 MG/4 ML VIAL IV SCH (21:52)
[2024-10-13] VITALS (8 sets, daily range): BP systolic 112–175; BP diastolic 70–89; PULSE 58–76; RESP 15–20; TEMP 97.8–98.3; O2SAT 93–97
--- NOTE | 2024-10-13 09:55 | DVHPN2 ---
Reviewed: Care Plan, H&P, Labs, Medications, Previous Orders, Radiology Changes from previous H/P or p: No Changes Eyes: No Pain, No Vision change, No Conjunctivae inflammation, No Eyelid inflammation, No Other, No Redness ENT: No Ear pain, No Ear discharge, No Nose pain, No Nose discharge, No Nose congestion, No Mouth pain, No Mouth swelling, No Throat pain, No Throat swelling, No Other Cardiovascular: Chest Pain Respiratory: No Cough, No Dry; Shortness of breath; No SOB with excertion, No Wheezing, No Hemoptysis, No Pleuritic Pain, No Sputum, No Other Gastrointestinal: No Nausea, No Vomiting, No Abdominal Pain, No Diarrhea, No Constipation, No Melena, No Hematochezia, No Other Genitourinary: No Dysuria, No Frequency, No Incontinence, No Hematuria, No Retention, No Other Musculoskeletal: No other, No neck pain, No shoulder pain, No arm pain, No back pain, No hand pain, No leg pain, No foot pain Skin: No Rash, No Lesions, No Jaundice, No Bruising, No Other Objective Vitals Vital Signs Date Time Temp Pulse Resp B/P (MAP) Pulse Ox O2 Delivery O2 Flow Rate FiO2 10/13/24 05:00 98.2 74 16 134/85 (101) 93 98.2 10/12/24 20:00 Room Air* 0 21 Intake/Output Intake and Output 10/13/24 07:00 Intake Total 3300 ml Output Total 1875 ml Balance 1425 ml Intake Oral 3000 ml IV Total 300 ml Output Urine Total 1875 ml Medications Current Medications Medications Dose Ordered Sig/Yvonne Route Start Time Stop Time Status Last Admin Dose Admin Divalproex Sodium 750 mg BID PO 10/10/24 22:00 10/13/24 09:27 750 MG Azithromycin 250 ml @ 125 mls/hr DAILY IV 10/11/24 10:00 10/12/24 11:17 125 MLS/HR Memantine 5 mg DAILY PO 10/11/24 10:00 10/13/24 09:27 5 MG Atorvastatin Calcium 10 mg HS PO 10/10/24 22:00 10/12/24 21:53 10 MG Donepezil HCl 10 mg HS PO 10/10/24 22:00 10/12/24 21:52 10 MG Quetiapine Fumarate 200 mg HS PO 10/10/24 22:00 10/12/24 21:52 200 MG Rivaroxaban 20 mg QPM PO 10/11/24 18:00 10/12/24 18:30 20 MG Acetaminophen/ Hydrocodone Bitart 1 tab Q4HP PRN PO 10/10/24 20:30 Ondansetron HCl 4 mg Q4HP PRN IV 10/10/24 20:30 Acetaminophen 650 mg Q6HP PRN PO 10/10/24 20:30 Hydralazine HCl 10 mg Q6HP PRN IV 10/10/24 20:45 Nitroglycerin 0.4 mg Q5MINP PRN SL 10/10/24 21:45 Morphine Sulfate 2 mg Q30M PRN IV 10/10/24 21:45 Lorazepam 1 mg Q8HP PRN IM 10/10/24 22:15 10/10/24 22:43 1 MG Docusate Sodium 100 mg BID PO 10/11/24 22:00 10/13/24 09:27 100 MG Ceftriaxone Sodium 50 ml @ 100 mls/hr DAILY@09 IV 10/12/24 09:00 10/13/24 09:27 100 MLS/HR Furosemide 40 mg DAILY IV 10/12/24 21:00 10/12/24 21:52 40 MG Laboratory Results Laboratory Tests 10/12/24 07:22 Urinalysis Test 10/11/24 04:50 Urine Color Yellow (Yellow) Urine Clarity Clear (Clear) Urine pH 5.5 (5.0-9.0) Urine Specific [place] 1.019 (1.001-1.035) Urine Protein Negative (Negative) Urine Ketones Negative (Negative) Urine Blood Negative /uL (Negative) Urine Nitrite Negative (Negative) Urine Bilirubin Negative (Negative) Urine Urobilinogen Normal mg/dL (Negative) Urine Leukocyte Esterase Negative /uL (Negative) Urine RBC 1 /hpf (0 - 3) Urine Microscopic WBC 3 /HPF (0-3) Urine Squamous Epithelial Cells Few /hpf (<5) Urine Bacteria None seen /hpf (None Seen) Urine Mucus Few (None Seen) Urine Glucose Normal mg/dL (Normal) Microbiology Microbiology Date/Time Source Procedure Growth Status 10/11/24 14:50 Blood Blood Culture - Preliminary NO GROWTH AFTER 24 HOURS OF INCUBATION. Resulted Labs and/or images reviewed: Labs reviewed by me, Image(s) reviewed by me Assessment/Plan Assessment/Plan Chest pain rule out coronary artery disease: Troponin negative x3 Treatment per ACS protocol, consult for appreciated, advised conservative management Bilateral community-acquired pneumonia: Rocephin azithromycin Cellulitis bilateral feet: Continue antibiotics Rocephin azithromycin, consult for podiatric Dr. 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 Plan discussed with: Patient My Orders Orders - LYDIA FLORES MD Procedure Category Date Status Time *Podiatry Consult CONS 10/12/24 Transmitted [facility]) 10:06 * Mash Tub Cooker Operator CONS 10/12/24 Transmitted Consult Bilat Lower Dvt US 10/12/24 Resulted 10:48 Apply Barrier Cream MARTY 10/12/24 In Process 10:30 Cleanse Wound With MARTY 10/12/24 In Process Wound Clean 10:30 * Dietary Consult CONS 10/12/24 Transmitted 17:09 Furosemide Injection PHA 10/12/24 In Process (Lasix Injection) 21:00 Date of Service: Oct 13, 2024 Billing Provider: LYDIA FLORES MD Common Visit Codes: [id number] INP/OBS CARE(HIGH) LYDIA FLORES MD Oct 13, 2024 09:55
[2024-10-13] MEDS ORDERED: ENOXAPARIN SOD 40 MG/0.4 ML SYRINGE SC SCH (10:00)
[2024-10-14 01:00] VITALS: BP 122/68; PULSE 61; RESP 17; TEMP 98.5; O2SAT 92
[2024-10-14 06:21] LABS: Basophils # (auto) 0 10 ^3/uL (0-0.2); Basophils % (auto) 0.5 % (0.0-2.0); Eosinophils # (auto) 0.1 10 ^3/uL (0-0.8); Eosinophils % (auto) 2.3 % (0.0-7.0); Hemoglobin 14.7 g/dL (13.5-17.5); Lymphocytes % (auto) 43.2 % (10.0-50.0); Mean Corpuscular Hgb Conc. 34.2 g/dL (32.0-36.0); Mean Corpuscular Volume 99.5 fL (80.0-100.0); Monocytes # (auto) 0.3 10 ^3/uL (0-1.3); Monocytes % (auto) 7.2 % (0.0-12.0); Neutrophils # (auto) 2.2 10 ^3/uL (1.6-8.6); Neutrophils % (auto) 46.8 % (37.0-80.0); Nucleated Red Blood Cells % 0.2 %; Red Blood Cells 4.33 10^6/uL (4.5-5.90); Red Cell Distribution Width 13.4 % (11.8-14.3); White Blood Cell 4.7 10^3/uL (4.4-10.8)
[2024-10-14 06:39] LABS: Alanine Aminotransferase 19 U/L (7-40); Alkaline Phosphatase 76 U/L (46-116); Anion Gap 10 (5-15); BUN/Creatinine Ratio 23.4 (10.0-20.0); Calcium 9.2 mg/dL (8.7-10.4); Carbon Dioxide 23 mmol/L (20-31); Chloride 105 mmol/L (98-107); Glucose 95 mg/dL (74-106); Sodium 138 mmol/L (136-145); Total Protein 6.5 g/dL (5.7-8.2)
[2024-10-14 06:40] LABS: Bilirubin, Total 0.5 mg/dL (0.2-1.0)
[2024-10-14 06:46] LABS: Aspartate Aminotransferase 53 U/L (13-40); Blood Urea Nitrogen 41 mg/dL (9-23); Potassium 3.2 mmol/L (3.5-5.1)
[2024-10-14 07:08] LABS: Platelet Count (auto) 111 10^3/uL (140-450)
[2024-10-14 08:00] VITALS: PULSE 60; RESP 60; O2SAT 92
--- NOTE | 2024-10-14 08:36 | DVHPN2 ---
Reviewed: Care Plan, H&P, Labs, Medications, Previous Orders, Radiology Changes from previous H/P or p: No Changes Eyes: No Pain, No Vision change, No Conjunctivae inflammation, No Eyelid inflammation, No Other, No Redness ENT: No Ear pain, No Ear discharge, No Nose pain, No Nose discharge, No Nose congestion, No Mouth pain, No Mouth swelling, No Throat pain, No Throat swelling, No Other Cardiovascular: Chest Pain Respiratory: No Cough, No Dry; Shortness of breath; No SOB with excertion, No Wheezing, No Hemoptysis, No Pleuritic Pain, No Sputum, No Other Gastrointestinal: No Nausea, No Vomiting, No Abdominal Pain, No Diarrhea, No Constipation, No Melena, No Hematochezia, No Other Genitourinary: No Dysuria, No Frequency, No Incontinence, No Hematuria, No Retention, No Other Musculoskeletal: No other, No neck pain, No shoulder pain, No arm pain, No back pain, No hand pain, No leg pain, No foot pain Skin: No Rash, No Lesions, No Jaundice, No Bruising, No Other Objective Vitals Vital Signs Date Time Temp Pulse Resp B/P (MAP) Pulse Ox O2 Delivery O2 Flow Rate FiO2 10/14/24 01:00 98.5 61 17 122/68 (86) 92 98.5 10/13/24 20:00 Room Air* 0 21 Intake/Output Intake and Output 10/14/24 07:00 Intake Total 1140 ml Output Total 1850 ml Balance -710 ml Intake Oral 1140 ml Output Urine Total 1850 ml # Bowel Movements 2 Medications Current Medications Medications Dose Ordered Sig/Yvonne Route Start Time Stop Time Status Last Admin Dose Admin Divalproex Sodium 750 mg BID PO 10/10/24 22:00 10/13/24 22:00 750 MG Azithromycin 250 ml @ 125 mls/hr DAILY IV 10/11/24 10:00 10/13/24 11:04 125 MLS/HR Memantine 5 mg DAILY PO 10/11/24 10:00 10/13/24 09:27 5 MG Atorvastatin Calcium 10 mg HS PO 10/10/24 22:00 10/13/24 22:00 10 MG Donepezil HCl 10 mg HS PO 10/10/24 22:00 10/13/24 22:00 10 MG Quetiapine Fumarate 200 mg HS PO 10/10/24 22:00 10/13/24 22:01 200 MG Rivaroxaban 20 mg QPM PO 10/11/24 18:00 10/13/24 18:17 20 MG Acetaminophen/ Hydrocodone Bitart 1 tab Q4HP PRN PO 10/10/24 20:30 Ondansetron HCl 4 mg Q4HP PRN IV 10/10/24 20:30 Acetaminophen 650 mg Q6HP PRN PO 10/10/24 20:30 Hydralazine HCl 10 mg Q6HP PRN IV 10/10/24 20:45 Nitroglycerin 0.4 mg Q5MINP PRN SL 10/10/24 21:45 Morphine Sulfate 2 mg Q30M PRN IV 10/10/24 21:45 Lorazepam 1 mg Q8HP PRN IM 10/10/24 22:15 10/10/24 22:43 1 MG Docusate Sodium 100 mg BID PO 10/11/24 22:00 10/13/24 22:00 100 MG Ceftriaxone Sodium 50 ml @ 100 mls/hr DAILY@09 IV 10/12/24 09:00 10/13/24 09:27 100 MLS/HR Furosemide 40 mg DAILY IV 10/12/24 21:00 10/13/24 17:21 40 MG Laboratory Results Laboratory Tests 10/14/24 05:30 Chemistry Test 10/14/24 05:30 Albumin 4.0 g/dL (3.2-4.8) Calcium Level 9.2 mg/dL (8.7-10.4) Total Protein 6.5 g/dL (5.7-8.2) LFT Test 10/14/24 05:30 Alanine Aminotransferase (ALT) 19 U/L (7-40) Alkaline Phosphatase 76 U/L (46-116) Aspartate Amino Transferase (AST) 53 U/L (13-40) H Total Bilirubin 0.5 mg/dL (0.2-1.0) Urinalysis Test 10/11/24 04:50 Urine Color Yellow (Yellow) Urine Clarity Clear (Clear) Urine pH 5.5 (5.0-9.0) Urine Specific [place] 1.019 (1.001-1.035) Urine Protein Negative (Negative) Urine Ketones Negative (Negative) Urine Blood Negative /uL (Negative) Urine Nitrite Negative (Negative) Urine Bilirubin Negative (Negative) Urine Urobilinogen Normal mg/dL (Negative) Urine Leukocyte Esterase Negative /uL (Negative) Urine RBC 1 /hpf (0 - 3) Urine Microscopic WBC 3 /HPF (0-3) Urine Squamous Epithelial Cells Few /hpf (<5) Urine Bacteria None seen /hpf (None Seen) Urine Mucus Few (None Seen) Urine Glucose Normal mg/dL (Normal) Microbiology Microbiology Date/Time Source Procedure Growth Status 10/11/24 14:50 Blood Blood Culture - Preliminary NO GROWTH AFTER 48 HOURS OF INCUBATION. Resulted Labs and/or images reviewed: Labs reviewed by me, Image(s) reviewed by me Assessment/Plan Assessment/Plan Chest pain coronary artery disease ruled out Troponin negative x3 Treatment per ACS protocol, consult for appreciated, advised conservative management Bilateral community-acquired pneumonia: Rocephin azithromycin Cellulitis bilateral feet: Continue antibiotics Rocephin azithromycin, consult for night warehouse selector Dr. Canales appreciated advised conservative management Swelling bilateral lower extremities, DVT ruled out Acute metabolic encephalopathy History of atrial fibrillation: Xarelto Dementia: Aricept and Namenda History of seizures: Depakote Depression: Seroquel Acute kidney injury: IV fluids Acute on chronic CHF exacerbation cardiology consult COPD exacerbation Hypercholesterolemia Hypertension History of [place] History of pacemaker jordan man Ginette [phone] at bed side, Pt has no family. Plan discussed with: Patient My Orders Orders - LYDIA FLORES MD Procedure Category Date Status Time Pt Request For Service PT 10/13/24 Logged 09:57 Complete Blood Count LAB 10/15/24 Verified 05:00 Comprehensive LAB 10/15/24 Verified Metabolic Panel 05:00 * Senior Technical Writer CONS 10/13/24 Transmitted Consult Date of Service: Oct 14, 2024 Billing Provider: LYDIA FLORES MD Common Visit Codes: [id number] INP/OBS CARE(HIGH) LYDIA FLORES MD Oct 14, 2024 08:36
--- NOTE | 2024-10-14 08:47 | DVHDS2 ---
Discharge Summary Date of Admission Oct 10, 2024 at 21:36 Date of Discharge: Oct 14, 2024 Admitting Diagnosis Chest pain Wounds: Cellulitis bilateral lower extremities Labs/Diagnostic Data: Laboratory Results Test 10/14/24 05:30 10/12/24 07:22 10/11/24 04:50 10/10/24 14:39 White Blood Count 4.7 10^3/uL (4.4-10.8) Red Blood Count 4.33 10^6/uL (4.5-5.90) Hemoglobin 14.7 g/dL (13.5-17.5) Hematocrit 43.0 % (41.0-53.0) Mean Corpuscular Volume 99.5 fL (80.0-100.0) Mean Corpuscular Hemoglobin 34.0 pg (28.0-32.0) Mean Corpuscular Hemoglobin Concent 34.2 g/dL (32.0-36.0) Red Cell Distribution Width 13.4 % (11.8-14.3) Platelet Count 111 10^3/uL (140-450) Mean Platelet Volume 7.1 fL (6.9-10.8) Neutrophils (%) (Auto) 46.8 % (37.0-80.0) Lymphocytes (%) (Auto) 43.2 % (10.0-50.0) Monocytes (%) (Auto) 7.2 % (0.0-12.0) Eosinophils (%) (Auto) 2.3 % (0.0-7.0) Basophils (%) (Auto) 0.5 % (0.0-2.0) Neutrophils # (Auto) 2.2 10 ^3/uL (1.6-8.6) Lymphocytes # (Auto) 2.0 10 ^3/uL (0.4-5.4) Monocytes # (Auto) 0.3 10 ^3/uL (0-1.3) Eosinophils # (Auto) 0.1 10 ^3/uL (0-0.8) Basophils # (Auto) 0 10 ^3/uL (0-0.2) Nucleated Red Blood Cells 0.2 % Sodium Level 138 mmol/L (136-145) Potassium Level 3.2 mmol/L (3.5-5.1) Chloride Level 105 mmol/L (98-107) Carbon Dioxide Level 23 mmol/L (20-31) Anion Gap 10 (5-15) Blood Urea Nitrogen 41 mg/dL (9-23) Creatinine 1.75 mg/dL (0.700-1.30) Glomerular Filtration Rate Calc 41 mL/min (>90) BUN/Creatinine Ratio 23.4 (10.0-20.0) Serum Glucose 95 mg/dL (74-106) Calcium Level 9.2 mg/dL (8.7-10.4) Total Bilirubin 0.5 mg/dL (0.2-1.0) Aspartate Amino Transferase (AST) 53 U/L (13-40) Alanine Aminotransferase (ALT) 19 U/L (7-40) Alkaline Phosphatase 76 U/L (46-116) Total Protein 6.5 g/dL (5.7-8.2) Albumin 4.0 g/dL (3.2-4.8) Differential Total Cells Counted 100.0 (100) Neutrophils % (Manual) 49 (37.0-80.0) Band Neutrophils % (Manual) 4 Lymphocytes % (Manual) 36 (10.0-50.0) Monocytes % (Manual) 9 (0-12) Eosinophils % (Manual) 2 (0-7) Basophils % (Manual) 0 (0.0-2.0) Metamyelocytes % (manual) 0 Myelocytes % (Manual) 0 Promyelocytes % (Manual) 0 Blast Cells % (Manual) 0 Reactive Lymphocytes 0 Platelet Estimate Decreased Macrocytosis Slight Hemoglobin A1c 5.1 % A1C (<5.7) Triglycerides Level 206 mg/dL (< 150) Cholesterol Level 144 mg/dL (< 200) LDL Cholesterol 97 mg/dL (< 100) HDL Cholesterol 19 mg/dL (40-59) Thyroid Stimulating Hormone (TSH) 2.26 uIU/mL (0.55-4.78) Urine Color Yellow (Yellow) Urine Clarity Clear (Clear) Urine pH 5.5 (5.0-9.0) Urine Specific [place] 1.019 (1.001-1.035) Urine Protein Negative (Negative) Urine Ketones Negative (Negative) Urine Blood Negative /uL (Negative) Urine Nitrite Negative (Negative) Urine Bilirubin Negative (Negative) Urine Urobilinogen Normal mg/dL (Negative) Urine Leukocyte Esterase Negative /uL (Negative) Urine RBC 1 /hpf (0 - 3) Urine Microscopic WBC 3 /HPF (0-3) Urine Squamous Epithelial Cells Few /hpf (<5) Urine Bacteria None seen /hpf (None Seen) Urine Mucus Few (None Seen) Urine Glucose Normal mg/dL (Normal) Troponin I High Sensitivity 15 ng/L (</=54) Test 10/10/24 11:38 10/10/24 10:46 Lactic Acid Level 1.2 mmol/L (0.4-2.0) B-Type Natriuretic Peptide 16.38 pg/mL (0-100) Lipase 33 U/L (12-53) Other Laboratory Tests 10/14/24 05:30 Brief Hx & Hospital Course: 74-year-old male with a history of dementia atrial fibrillation seizures depression CHF COPD hypercholesterolemia hypertension ID status post pacemaker came in complaining of chest pain troponin negative x3 treated per ACS . 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 Canales advised conservative management. Comorbid condition treated appropriately. Patient on Xarelto for AFib Aricept and Namenda for dementia Depakote for seizure Seroquel for depression. Patient lives in a board and care patient's caregiver Ginette was with the bedside and requesting [facility] and [facility]. Consults/Reason for consult Cardiology Dr. Choi Podiatry Dr. Canales Operations or Procedures None Condition at Discharge: Fair Final Diagnosis/Problems List Chest pain coronary artery disease ruled out Troponin negative x3 Treatment per ACS protocol, consult for appreciated, advised conservative management Bilateral community-acquired pneumonia: Rocephin azithromycin Cellulitis bilateral feet: Continue antibiotics Rocephin azithromycin, consult for physician industrial Dr. Canales appreciated advised conservative management Swelling bilateral lower extremities, DVT ruled out Acute metabolic encephalopathy History of atrial fibrillation: Xarelto Dementia: Aricept and Namenda History of seizures: Depakote Depression: Seroquel Acute kidney injury: IV fluids Acute on chronic CHF exacerbation cardiology consult COPD exacerbation Hypercholesterolemia Hypertension History of ID History of pacemaker Discharge Disposition: [facility] Discharge Instruct/Medications Diet: Cardiac 2g Na,low cholest Activity: No Restrictions, As Tolerated Follow Up/Referral: Follow up with the alf Medications: Rocephin 1 g IV daily for two weeks Azithromycin 500 mg IV daily for two weeks for pneumonia 39 (Time taken for discharge summary 39 minutes) Discharge Statement: "Patient was advised to return to the ER or call 911 if any headaches, dizziness, shortness of breath, chest pain, abdominal pain, bleeding, fevers, or worsening of medical condition. Patient was counseled about treatment plan, medications, possible side effects, patientverbalized understanding. All questions were answered to the best of my ability. This discharge took greater then 30 minutes in planning, reviewing documentation, counseling the patient, and discussing with other team members." ASSESSMENT ASSESSMENT Hospital Course Uneventful Assessment Chest pain coronary artery disease ruled out Troponin negative x3 Treatment per ACS protocol, consult for appreciated, advised conservative management Bilateral community-acquired pneumonia: Rocephin azithromycin Cellulitis bilateral feet: Continue antibiotics Rocephin azithromycin, consult for physician industrial Dr. Canales appreciated advised conservative management Swelling bilateral lower extremities, DVT ruled out Acute metabolic encephalopathy History of atrial fibrillation: Xarelto Dementia: Aricept and Namenda History of seizures: Depakote Depression: Seroquel Acute kidney injury: IV fluids Acute on chronic CHF exacerbation cardiology consult COPD exacerbation Hypercholesterolemia Hypertension History of ID History of pacemaker Date of Service: Oct 14, 2024 Billing Provider: LYDIA FLORES MD Common Visit Codes: 54733-KRX/OBS DISCH DAY >30min LYDIA FLORES MD Oct 14, 2024 08:47
[2024-10-14 09:00] VITALS: BP 152/77; PULSE 60; RESP 22; TEMP 97.7; O2SAT 92
[2024-10-14] MEDS: POTASSIUM CHL 20 Meq TABLET PO ONE (09:02)
[2024-10-14 10:25] LABS: COVID19 ANTIGEN SOFIA FIA NEGATIVE (NEGATIVE)
[2024-10-14 12:51] VITALS: BP 114/78; PULSE 67; RESP 20; TEMP 98.1; O2SAT 92
[2024-10-14 15:51] VITALS: BP 114/78; PULSE 67; RESP 20; TEMP 98.1; O2SAT 92
[2024-10-14 17:00] VITALS: BP 120/82; PULSE 64; RESP 18; TEMP 98.4; O2SAT 93
== END 2024-10-14 17:55 | DRG 177 ==
LOC: ER 10:29 → EDBD 10:29 → OVERFLOW 21:36 → TELE-CENTR 10-11 15:13
PROVIDERS: ADMIT Family Medicine; ATTEND Family Medicine
PROC: 05HA33Z Insertion of Infusion Device into Left Brachial Vein, Percutaneous Approach (ICD-10-PCS; principal; 2024-10-14)
PROC: B54NZZA Ultrasonography of Left Upper Extremity Veins, Guidance (ICD-10-PCS; 2024-10-14)
DX: J15.69 Pneumonia due to other Gram-negative bacteria (principal); G93.41 Metabolic encephalopathy; N17.0 Acute kidney failure with tubular necrosis; I50.33 Acute on chronic diastolic (congestive) heart failure; J44.1 Chronic obstructive pulmonary disease with (acute) exacerbation; L03.116 Cellulitis of left lower limb; L03.115 Cellulitis of right lower limb; J44.0 Chronic obstructive pulmonary disease with (acute) lower respiratory infection; J15.9 Unspecified bacterial pneumonia; K59.00 Constipation, unspecified; R56.9 Unspecified convulsions; F03.90 Unspecified dementia, unspecified severity, without behavioral disturbance, psychotic disturbance, mood disturbance, and anxiety; N20.0 Calculus of kidney; K80.20 Calculus of gallbladder without cholecystitis without obstruction; Z20.822 Contact with and (suspected) exposure to COVID-19; K56.41 Fecal impaction; E66.01 Morbid (severe) obesity due to excess calories; I48.91 Unspecified atrial fibrillation; F32.A Depression, unspecified; I11.0 Hypertensive heart disease with heart failure; I50.9 Heart failure, unspecified; E78.00 Pure hypercholesterolemia, unspecified; Z74.01 Bed confinement status; Z90.49 Acquired absence of other specified parts of digestive tract; Z79.84 Long term (current) use of oral hypoglycemic drugs; Z79.899 Other long term (current) drug therapy; Z95.0 Presence of cardiac pacemaker; Z79.1 Long term (current) use of non-steroidal anti-inflammatories (NSAID); Z86.711 Personal history of pulmonary embolism; Z79.01 Long term (current) use of anticoagulants; Z80.42 Family history of malignant neoplasm of prostate; I25.2 Old myocardial infarction; Z68.37 Body mass index [BMI] 37.0-37.9, adult
CPT/HCPCS: 36415; 71045; 74176; 80048; 80053; 80061; 81001; 83036; 83605; 83690; 83880; 84443; 84484; 85007; 85025; 85027; 87040; 87426; 93005; 93306; 93970; 96365; 96372; 97163; 99291; G0378